=== PATIENT | female | born 1935 | race Caucasian/White ===

== ENCOUNTER 2018-11-07 11:23 | Inpatient (IN) | payer MEDICARE, BC ==
[2018-11-07 12:23] LABS: ABS Basophils 0.1 10^3/ul (0-0.2); ABS Eosinophils 0 10^3/ul (0-0.6); ABS Lymphocytes 0.2 10^3/ul (1.0-4.8); ABS Monocytes 0.3 10^3/ul (0-0.8); ABS Neutrophils 7.7 10^3/ul (1.5-7.7); ABS Nucleated RBC 0 10^3/ul; Eosinophil % 0.1 %; Hematocrit 40 % (33-41); Hemoglobin 13.3 g/dL (12.0-16.0); Lymphocyte % 2.7 %; Mean Corpuscular HGB Conc 34 g/dL (31-36); Mean Corpuscular Hemoglobin 31 pg (27-31); Mean Corpuscular Volume 91 fL (80-97); Mean Platelet Volume 8.2 fL (7.4-10.4); Nucleated Red Blood Cells % 0; Platelet Count 147 10^3/uL (150-450); Red Blood Count 4.35 10^6 /uL (3.70-4.87); Red Cell Distribution Width 15 % (10.5-15); White Blood Count 8.3 10^3/uL (3.5-10.8)
[2018-11-07 12:40] LABS: Albumin 4.5 g/dL (3.2-5.2); BUN/Creatinine Ratio 35.1 (8-20); C Reactive Protein 23.06 mg/L (<8.01); Calcium 9.7 mg/dL (8.6-10.3); EGFR African American 87.1 (>60); EGFR Non-African American 71.9 (>60); Globulin 2.3 g/dL (2-4); Potassium 3.8 mmol/L (3.5-5.0); Total Bilirubin 0.6 mg/dL (0.2-1.0); Total Protein 6.8 g/dL (6.4-8.9)
--- NOTE | 2018-11-07 12:48 | ED ---
Abdominal Pain/Female - HPI Summary HPI Summary: This patient is an 82 year old F presenting to [facility] with a chief complaint of intermittent right sided abdominal pain since last night. The patient rates the pain 4/10 in severity. Patient reports vomiting, diarrhea, SOB, and bloody stool. Patient denies CP. She doesnt usually eat dairy products. The vomiting began at 02:00 this morning. The patient says she usually has difficulty breathing due to her COPD. NKDA. PMHX pancreatic problems, gallbladder removal, hysterectomy, COPD, cardiac stent, Hemorrhoids. No PMHx appendectomy. No SHx tobacco use, EtOH use, recreational drugs. Vitals in the room: HR 88 bpm, BP 129 /63. - History of Current Complaint Chief Complaint: EDNauseaVomitDiarrh Stated Complaint: VOMITING AND DIARRHEA PER PT Time Seen by Provider: 11/07/18 12:35 Hx Obtained From: Patient Onset/Duration: Sudden Onset Timing: Constant Severity Currently: Mild Pain Intensity: 4 Pain Scale Used: 0-10 Numeric Location: Diffuse Associated Signs and Symptoms: Positive: Blood in Stool, Vomiting, Diarrhea Allergies/Adverse Reactions: Allergies Allergy/AdvReac Type Severity Reaction Status Date / Time No Known Allergies Allergy Verified 11/07/18 13:34 Home Medications: Home Medications Albuterol/Ipratropium NEB.TRACEY* [Duoneb (Albuterol 2.5 MG/Ipratropium 0.5 MG)] 1 neb INH Q4H PRN 11/07/18 [History Confirmed 11/07/18] Aspirin [Aspirin EC] 81 mg PO DAILY 11/07/18 [History Confirmed 11/07/18] Cholecalciferol (Vitamin D3) [Vitamin D3] 2,000 unit PO DAILY 11/07/18 [History Confirmed 11/07/18] Diclofenac Sodium 1 applic TOPICAL TID 11/07/18 [History Confirmed 11/07/18] Docusate Sodium [Colace] 100 mg PO BID PRN 11/07/18 [History Confirmed 11/07/18] Fluticasone NASAL SPRAY 50MCG* 1 spray BOTH NARES DAILY 11/07/18 [History Confirmed 11/07/18] Gabapentin 800 mg PO BID 11/07/18 [History Confirmed 11/07/18] Isosorbide Mononitrate ER TAB* [Imdur ER TAB*] 30 mg PO DAILY 11/07/18 [History Confirmed 11/07/18] Metoprolol Tartrate 100 mg PO DAILY 11/07/18 [History Confirmed 11/07/18] Multivitamin [One Daily] 1 tab PO DAILY 11/07/18 [History Confirmed 11/07/18] Nitroglycerin 0.4 mg SL Q5M 11/07/18 [History Confirmed 11/07/18] [place]-3 Fatty Acids (Nf) [Fish Oil (NF)] 2,000 mg PO DAILY 11/07/18 [History Confirmed 11/07/18] Oxycodone HCl 1 tab PO Q6H PRN 11/07/18 [History Confirmed 11/07/18] Oxycontin 40 mg 40 mg PO TID 11/07/18 [History Confirmed 11/07/18] Refresh Classic Eye Drops 1 drop BOTH EYES BID 11/07/18 [History Confirmed 11/07] Rosuvastatin Calcium 10 mg PO DAILY 11/07/18 [History Confirmed 11/07/18] Sertraline* [Zoloft*] 200 mg PO DAILY 11/07/18 [History Confirmed 11/07/18] Warfarin Sodium 7 mg PO DAILY 11/07/18 [History Confirmed 11/07/18] fentaNYL [Fentanyl] 1 patch TOPICAL Q3D 11/07/18 [History Confirmed 11/07/18] raNITIdine HCl [Ranitidine HCl] 300 mg PO DAILY 11/07/18 [History Confirmed ] PMH/Surg Hx/FS Hx/Imm Hx Respiratory History: Reports: Hx Chronic Obstructive Pulmonary Disease (COPD) GI History: Reports: Other GI Disorders - hemmorhoids Infectious Disease History: No Infectious Disease History: Denies: Traveled Outside the [place] in Last 30 Days - Family History Known Family History: Positive: Respiratory Disease - Social History Alcohol Use: None Substance Use Type: Reports: None Hx Tobacco Use: No Review of Systems Negative: Chest Pain Positive: Shortness Of Breath Positive: Abdominal Pain, Vomiting, Diarrhea, Other - bloody stool All Other Systems Reviewed And Are Negative: Yes Physical Exam - Summary Physical Exam Summary: GENERAL: Patient is a well-developed and nourished female who is lying uncomfortable in the stretcher. Patient is not in any acute respiratory distress. HEAD AND FACE: Normocephalic EYES: PERRLA, EOMI x 2. EARS: Hearing grossly intact. MOUTH: Oropharynx within normal limits. NECK: Supple, trachea is midline, no adenopathy, no JVD, no carotid bruit. CHEST: Symmetric, no tenderness at palpation LUNGS: Clear to auscultation bilaterally. No wheezing or crackles. CVS: Regular rate and rhythm, S1 and S2 present, no murmurs or gallops appreciated. ABDOMEN: Soft, diffuse TTP, worse on the right side. Bowel sounds are normal. No abdominal abnormal pulsations. EXTREMITIES: Full ROM in all major joints, no edema, no cyanosis or clubbing. NEURO: Alert and oriented x 3. No acute neurological deficits. Speech is normal and follows commands. SKIN: Dry and warm Triage Information Reviewed: Yes Vital Signs On Initial Exam: Initial Vitals Temp Pulse Resp BP Pulse Ox 98.1 F 89 18 151/85 97 11/07/18 11:24 11/07/18 11:24 11/07/18 11:24 11/07/18 11:24 11/07/18 11:24 Vital Signs Reviewed: Yes Diagnostics - Vital Signs Vital Signs Temp Pulse Resp BP Pulse Ox 11/07/18 11:24 98.1 F 89 18 151/85 97 - Laboratory Lab Results: Lab Results 11/07/18 11/07/18 11/07/18 Range/Units 12:12 12:12 12:12 WBC 8.3 (3.5-10.8) 10^3/uL RBC 4.35 (3.70-4.87) 10^6 /uL Hgb 13.3 (12.0-16.0) g/dL Hct 40 (33-41) % MCV 91 (80-97) fL MCH 31 (27-31) pg MCHC 34 (31-36) g/dL RDW 15 (10.5-15) % Plt Count 147 L (150-450) 10^3/uL MPV 8.2 (7.4-10.4) fL Neut % (Auto) 92.7 % Lymph % (Auto) 2.7 % [place] % (Auto) 3.9 % Eos % (Auto) 0.1 % Baso % (Auto) 0.6 % Absolute Neuts (auto) 7.7 (1.5-7.7) 10^3/ul Absolute Lymphs (auto) 0.2 L (1.0-4.8) 10^3/ul Absolute Monos (auto) 0.3 (0-0.8) 10^3/ul Absolute Eos (auto) 0 (0-0.6) 10^3/ul Absolute Basos (auto) 0.1 (0-0.2) 10^3/ul Absolute Nucleated RBC 0 10^3/ul Nucleated RBC % 0 Sodium 139 (135-145) mmol/L Potassium 3.8 (3.5-5.0) mmol/L Chloride 103 (101-111) mmol/L Carbon Dioxide 29 (22-32) mmol/L Anion Gap 7 (2-11) mmol/L BUN 27 H (6-24) mg/dL Creatinine 0.77 (0.51-0.95) mg/dL Est GFR ( Amer) 87.1 (>60) Est GFR (Non-Af Amer) 71.9 (>60) BUN/Creatinine Ratio 35.1 H (8-20) Glucose 123 H (70-100) mg/dL Lactic Acid 1.2 (0.5-2.0) mmol/L Calcium 9.7 (8.6-10.3) mg/dL Total Bilirubin 0.60 (0.2-1.0) mg/dL AST 20 (13-39) U/L ALT 15 (7-52) U/L Alkaline Phosphatase 60 (34-104) U/L C-Reactive Protein 23.06 H (<8.01) mg/L Total Protein 6.8 (6.4-8.9) g/dL Albumin 4.5 (3.2-5.2) g/dL Globulin 2.3 (2-4) g/dL Albumin/Globulin Ratio 2.0 (1-3) Lipase 10 L (11.0-82.0) U/L Result Diagrams: 11/07/18 12:12 11/07/18 12:12 Lab Statement: Any lab studies that have been ordered have been reviewed, and results considered in the medical decision making process. - CT A/P CT Interpretation Completed By: Radiologist Summary of CT Findings: 1. MILD FLUID-FILLED DISTENDED MID AND DISTAL SMALL BOWEL SUGGESTIVE OF A PARTIAL. OBSTRUCTION LESS LIKELY AN ILEUS. 2. STATUS POST CHOLECYSTECTOMY. THERE IS BOTH INTRA AND EXTRA HEPATIC DUCTAL DISTENTION. WHICH MAY REPRESENT POSTCHOLECYSTECTOMY CHANGES ALTHOUGH APPEARS MORE PROMINENT THAN. TYPICAL. 3. MILD SPLENOMEGALY WITH MULTIPLE SMALL LESIONS. RECOMMEND CLINICAL CORRELATION AND. FOLLOW-UP TO DEMONSTRATE STABILITY. ED physician has reviewed this report Abdominal Pain Fem Course/Dx - Course Course Of Treatment: This patient is an 82 year old F presenting to [facility] with a chief complaint of intermittent right sided abdominal pain since last night. The patient rates the pain 4/10 in severity. Patient reports vomiting, diarrhea , SOB, and bloody stool. Patient denies CP. CT A/P reveals, per radiologist, 1. MILD FLUID-FILLED DISTENDED MID AND DISTAL SMALL BOWEL SUGGESTIVE OF A PARTIAL. OBSTRUCTION LESS LIKELY AN ILEUS. 2. STATUS POST CHOLECYSTECTOMY. THERE IS BOTH INTRA AND EXTRA HEPATIC DUCTAL DISTENTION. WHICH MAY REPRESENT POSTCHOLECYSTECTOMY CHANGES ALTHOUGH APPEARS MORE PROMINENT THAN TYPICAL. 3. MILD SPLENOMEGALY WITH MULTIPLE SMALL LESIONS. RECOMMEND CLINICAL CORRELATION AND FOLLOW-UP TO DEMONSTRATE STABILITY. ED physician has reviewed this radiology report. Bloodwork/UA obtained. In the ED course the patient was given Ondansetron, Iohexol, IV fluids, and Morphine. We discussed patient care with Dr. Rachel and Dr. Vail, hospitalist, and they recommended admission. - Diagnoses Provider Diagnoses: SBO (small bowel obstruction) - Provider Notifications Discussed Care Of Patient With: Rickie Rachel Time Discussed With Above Provider: 15:08 Instructed by Provider To: Admit As Inpatient Discharge - Sign-Out/Discharge Documenting (check all that apply): Patient Departure - admission Patient Received Moderate/Deep Sedation with Procedure: No - Discharge Plan Condition: Fair Disposition: ADMITTED TO [facility] Referrals: Brenda Adler MD [Primary Care Provider] - - Billing Disposition and Condition Condition: FAIR Disposition: Admitted to [facility] - Attestation Statements Document Initiated by Scribe: Yes Documenting Scribe: Hosea Henning Provider For Whom Scribe is Documenting (Include Credential): Norris Flannery MD Scribe Attestation: Hosea Ibarra, liliaed for Norris Flannery MD on 11/07/18 at 1553. Scribe Documentation Reviewed: Yes Provider Attestation: The documentation as recorded by the harleenibHosea wilde accurately reflects the service I personally performed and the decisions made by me, Norris Flannery MD Status of Scribe Document: Viewed Consult Consult: I spoke with Dr. Vail, hospitalist, at 15:13 and he recommended admission.
[2018-11-07] MEDS ORDERED: NS 0.9% 1000 ML** 1,000 ML IV ONE ×2 (12:49)
[2018-11-07] MEDS ORDERED: Morphine 4 MG/ML VIAL (1 ml) 4 MG/ML VIAL IV ONE (12:49)
[2018-11-07] MEDS ORDERED: Ondansetron INJ* 2 MG/ML VIAL IV ONE (12:49)
[2018-11-07 13:07] LABS: Urine Appearance Cloudy; Urine Bacteria Absent (Absent); Urine Bilirubin Negative (Negative); Urine Blood 3+ (Negative); Urine Color Yellow; Urine Glucose Negative (Negative); Urine Ketones Negative (Negative); Urine Nitrite Negative (Negative); Urine Protein Negative (Negative); Urine Red Blood Cell 3+(>10/hpf) (Absent); Urine Specific Gravity 1.024 (1.010-1.030); Urine Squamous Epithelial Cell Present (Absent); Urine Urobilinogen Negative (Negative); Urine White Blood Cell Trace(0-5/hpf) (Absent)
[2018-11-07] MEDS ORDERED: Iohexol 300* (CONTRAST) 10 ML SDV IV ONE (13:30)
[2018-11-07 15:06] LABS: Activated Partial Thrombo Time 45.6 seconds (26.0-36.3); INR 3.15 (0.77-1.02)
[2018-11-07] MEDS ORDERED: Albuterol/Ipratropium NEB.SOL* Albuterol 2.5 MG/Ipratropium 0.5 MG 3 ML INH PRN (16:24)
[2018-11-07] MEDS ORDERED: HYDROmorphone INJ* 0.5 MG/0.5 ML SYRINGE IV SLOW PU PRN (16:38)
[2018-11-07] MEDS ORDERED: Lactated Ringers 1000 ML Bag* 1,000 ML IV SCH (17:00)
--- NOTE | 2018-11-07 19:16 | HP ---
ADMITTING HISTORY AND PHYSICAL: DATE OF ADMISSION: 11/07/18 CHIEF COMPLAINT: Right-sided abdominal pain. HISTORY OF PRESENT ILLNESS: The patient is an 82-year-old lady with history of COPD, previous history of cholecystectomy and hysterectomy, who mentioned that for the past "couple of months," she has been having intermittent right-sided abdominal pain; however, this abdominal pain seemed to have stayed far longer and much more severe since last night. She mentions that since at around 8:30 p.m. last night, she has been having diarrhea of large volume, mostly brown in color with bright red bloody streak. She mentioned that she had at least 10 large volume diarrhea since 8:30 p.m. At around 2 a.m. prior to admission, she started vomiting again. She mentioned that she has vomited a lot that she has lost count. Persistence of her signs and symptoms led to her presentation in the ED for further evaluation, at which point, she was sent for a CT of her abdomen and pelvis, which suggested partial small bowel obstruction with mild splenomegaly with multiple small lesions. In the ED, she was given 4 mg IV of morphine, 2 L normal saline bolus, and ondansetron. PAST MEDICAL AND SURGICAL HISTORY: 1. Hemorrhoids. 2. COPD. 3. Status post cholecystectomy. 4. DVT x1. 5. PE x2. 6. Status post hysterectomy. 7. CAD, status post stent placement. 8. Right hip repair back in 2018 in [facility]. 9. Left total knee repair, status post right ankle screw and pin on right foot. REVIEW OF SYSTEMS: Right-sided abdominal pain as discussed above. Nausea and vomiting as discussed above as well as diarrhea. Denies any headaches, dizziness, fevers, chills, constipation, myalgias, arthralgias, throat pain, or new skin lesions. Rest of the 14-point review of systems other than what was described is otherwise unremarkable. SOCIAL HISTORY: She mentions that she lives with her daughter, son, and as well as grandchildren and great grandchildren. She denies any previous history of alcohol abuse, IV drug use. She did use to smoke; however, but quit 20 years ago. She mentions that she only smokes 2 cigarettes per day, but has substantial secondhand smoke history. FAMILY HISTORY: Blood clots on her mother's side including her maternal grandmother and maternal aunt. Breast cancer, her daughter. Her first cousins , myriad of cancer. Rheumatoid arthritis, her father. PHYSICAL EXAMINATION GENERAL APPEARANCE: The patient is awake, alert, and oriented x3, not in acute distress. VITAL SIGNS: The most recent vital signs of records with blood pressure of 135/ 56, 70 beats per minute heart rate, 95% saturation on room air. HEENT: Normocephalic, atraumatic. PERRLA. Extraocular muscles intact. Negative for icterus. Moist oral mucosa. Negative throat erythema. NECK: Soft, supple with no cervical lymphadenopathy. No JVD. CHEST: Clear to auscultation bilaterally. Good air entry. No wheezes, rales, or rhonchi. HEART: S1, S2 within normal limits. Regular rate and rhythm. No murmurs, rubs , or gallops. ABDOMEN: Soft, nondistended, but tender on the right side, both upper and lower quadrants, but no rebound tenderness. No signs of peritonitis or acute abdomen. EXTREMITIES: No cyanosis, clubbing, or edema. PSYCHIATRIC: No active psychosis, depression, suicidal or homicidal ideations. SKIN: Warm to touch. LABORATORY DATA: Most recent and pertinent laboratories drawn showed CBC with a WBC of 8.3, H and H were found to be normal, platelet count of 147. INR of 3.15. PTT of 45.6. Sodium and potassium were found to be normal. BUN of 27, creatinine is normal. LFTs were found to be normal with CRP mildly elevated at 23.06. Lipase of 10. Urinalysis showed specific gravity of 1.024, leukocyte esterase 1+, squamous epithelial cells were present, bacteria were absent. ASSESSMENT AND PLAN: The patient is an 82-year-old lady with history of chronic obstructive pulmonary disease, previous history of deep venous thrombosis, pulmonary embolism, who has been admitted for right-sided abdominal pain, likely due to partial small bowel obstruction. 1. Partial small bowel obstruction. On review of CT scan as well as a clinical presentation of the patient where the patient does not seem to be overly distended abdominal coffey with air-fluid levels not being severe on the CAT scan, I will opt not to place an NG tube in her given she has reservation on having this done. At this time, I will control her pain and give her IV fluids and we will place her on lactated Ringer's. I will consult surgical service officially and we will continue to follow. We will recheck abdominal imaging in a.m. 2. Chronic obstructive pulmonary disease, not in acute exacerbation. Continue albuterol nebulization. 3. Gastroesophageal reflux disease. We will place the patient on pantoprazole IV. 4. Depression, stable. Continue sertraline. 5. Pulmonary embolism/deep venous thrombosis. We will continue warfarin, but at the lower dose given mildly supratherapeutic INR in a.m. and for the fact that she mentions that she has clotted before while on Coumadin; however, she was unsure if she was therapeutic or not in those times. 6. DVT prophylaxis. Please see above discussion. 7. Disposition. As above. We will await further input from surgical department. [id number]/[facility] #: [id number] SALUD
[2018-11-07] MEDS ORDERED: O ndansetron ODT 4MG 5TAB PRPK 4 MG PAK PO ONE (19:57)
[2018-11-07] MEDS ORDERED: Nitroglycerin TAB 0.4 MG* 0.4 MG TAB SL PRN (20:00)
[2018-11-07] MEDS: Gabapentin CAP(*) 300 MG PO SCH (21:19)
[2018-11-07] MEDS ORDERED: Ondansetron INJ* 2 MG/ML VIAL IV PRN (21:20)
[2018-11-07] MEDS: Artificial Tears* 15 ML BTL BOTH EYES SCH (21:20)
[2018-11-08] MEDS: HYDROmorphone INJ1* 1 MG/ML SYRINGE IV SLOW PU PRN ×2 (02:42→16:12)
[2018-11-08] MEDS: Nitroglycerin TAB 0.4 MG* 0.4 MG TAB SL SCH (06:52)
[2018-11-08 07:37] LABS: Hematocrit 32 % (33-41); Hemoglobin 10.7 g/dL (12.0-16.0); Mean Corpuscular HGB Conc 34 g/dL (31-36); Mean Corpuscular Hemoglobin 31 pg (27-31); Mean Corpuscular Volume 92 fL (80-97); Red Blood Count 3.48 10^6 /uL (3.70-4.87); Red Cell Distribution Width 15 % (10.5-15); White Blood Count 2.6 10^3/uL (3.5-10.8)
[2018-11-08 07:38] LABS: ABS Basophils 0 10^3/ul (0-0.2); ABS Eosinophils 0 10^3/ul (0-0.6); ABS Lymphocytes 0.5 10^3/ul (1.0-4.8); ABS Monocytes 0.3 10^3/ul (0-0.8); ABS Neutrophils 1.7 10^3/ul (1.5-7.7); ABS Nucleated RBC 0 10^3/ul; Eosinophil % 0.5 %; Lymphocyte % 21.1 %; Nucleated Red Blood Cells % 0.1
[2018-11-08 07:48] LABS: Albumin 3.4 g/dL (3.2-5.2); Albumin/Globulin Ratio 1.8 (1-3); BUN/Creatinine Ratio 23.6 (8-20); Calcium 8.8 mg/dL (8.6-10.3); EGFR African American 94.1 (>60); EGFR Non-African American 77.7 (>60); Globulin 1.9 g/dL (2-4); Magnesium 1.6 mg/dL (1.9-2.7); Phosphorus 2.6 mg/dL (2.5-5.0); Potassium 3.4 mmol/L (3.5-5.0); Total Bilirubin 0.5 mg/dL (0.2-1.0); Total Protein 5.3 g/dL (6.4-8.9)
[2018-11-08 08:31] LABS: Platelet Count 97 10^3/uL (150-450)
[2018-11-08] MEDS: Gabapentin CAP(*) 300 MG PO SCH ×3 (09:41→22:12)
[2018-11-08] MEDS: Pantoprazole IV* 40 MG IV SCH (09:41)
[2018-11-08] MEDS: Metoprolol Tartrate TAB* 100 MG TAB PO SCH (09:41)
[2018-11-08] MEDS: Sertraline* 100 MG TAB PO SCH (09:41)
[2018-11-08] MEDS: Aspirin EC TAB* 81 MG TAB.EC PO SCH (09:41)
[2018-11-08] MEDS: Isosorbide Mononitrate ER TAB* 30 MG PO SCH (09:41)
[2018-11-08] MEDS: Artificial Tears* 15 ML BTL BOTH EYES SCH ×2 (09:42→22:13)
[2018-11-08] MEDS: Fluticasone NASAL SPRAY 50MCG* 16 gm SPRAY BTL BOTH NARES SCH (09:42)
[2018-11-08] MEDS ORDERED: Magnesium Sulf 4 GM/100 ML IV* 4,000 MG/100 ML BAG IVPB ONE ×2 (10:23→10:33)
[2018-11-08] MEDS ORDERED: Potassium Chlor TAB* 20 MEQ TAB.ER PO STA ×2 (10:23→10:34)
[2018-11-08] MEDS ORDERED: KCL 20 MEQ/100 ML IVPREMIX* 20 MEQ/100 ML BAG IV ONE (10:42)
[2018-11-08 11:29] LABS: INR 2.68 (0.77-1.02)
--- NOTE | 2018-11-08 16:50 | PN ---
Subjective Date of Service: 11/08/18 Interval History: Pt seen and examined. Meds and labs reviewed. CC: Pt feels better despite no change in abd imaging ROS: Denied SHARP/dizziness, F/C, N/V, CP, SOB, increased cough, sputum production , abd pain, diarrhea, constipation, dysuria, myalgias, arthralgias, throat pain , and new skin lesions. The rest of the 14 point ROS are unremarkable. PHYSICAL EXAM: GEN APPEARANCE: Awake, not in acute distress HEENT: NC/AT, PERRLA, moist oral mucosa, (-) throat erythema NECK: Soft, supple, (-) cervical LAD, (-)JVD HEART: S1S2 WNL, RRR, No MRG CHEST: CTA, BL, GAE, No W/R/R ABD: Soft, ND/NT, NABS 4x Q EXT: No C/C/E SKIN: Warm to touch PSYCH: No active psychosis, hallucinations, depression, SI/HI Objective Active Medications: Albuterol/Ipratropium (Duoneb (Albuterol 2.5 Mg/Ipratropium 0.5 Mg)) 1 neb INH Q4H PRN PRN Reason: SOB/WHEEZING Aspirin (Aspirin Ec Tab*) 81 mg PO DAILY [facility] Last Admin: 11/08/18 09:41 Dose: 81 mg Fluticasone Propionate (Flonase Nasal [place] 50mcg*) 1 spray BOTH NARES DAILY [facility] Last Admin: 11/08/18 09:42 Dose: 1 spray Gabapentin (Neurontin Cap(*)) 300 mg PO TID [facility] Last Admin: 11/08/18 13:40 Dose: 300 mg Hydromorphone HCl (Dilaudid Inj1s*) 0.5 mg IV SLOW PU Q6H PRN PRN Reason: PAIN Last Admin: 11/08/18 16:12 Dose: 0.5 mg Lactated Ringer's (Lactated Ringers 1000 Ml Bag*) 1,000 mls @ 75 mls/hr IV PER RATE [facility] Stop: 11/11/18 06:19 Last Admin: 11/07/18 21:06 Dose: 75 mls/hr Lactated Ringer's (Lactated Ringers 1000 Ml Bag*) 1,000 mls @ 75 mls/hr IV PER RATE [facility] Stop: 11/10/18 06:19 Isosorbide Mononitrate (Imdur Er Tab*) 30 mg PO DAILY [facility] Last Admin: 11/08/18 09:41 Dose: 30 mg Metoprolol Tartrate (Lopressor Tab*) 100 mg PO DAILY [facility] Last Admin: 11/08/18 09:41 Dose: 100 mg Nitroglycerin (Nitroglycerin Tab 0.4 Mg*) 0.4 mg SL Q5M PRN PRN Reason: CHEST PAIN Ondansetron HCl (Zofran Inj*) 4 mg IV Q6H PRN PRN Reason: NAUSEA Pantoprazole Sodium (Protonix Iv*) 40 mg IV DAILY [facility] Last Admin: 11/08/18 09:41 Dose: 40 mg Polyvinyl Alcohol (Polyvinyl Alcohol 1.4% Opth*) 1 drop BOTH EYES BID [facility] Last Admin: 11/08/18 09:42 Dose: 1 drop Sertraline HCl (Zoloft*) 200 mg PO DAILY [facility] Last Admin: 11/08/18 09:41 Dose: 200 mg Warfarin Sodium (Coumadin Tab(*)) 6 mg PO 1700 [facility]; Protocol Last Admin: 11/08/18 16:12 Dose: 6 mg Vital Signs - 8 hr 11/08/18 11/08/18 11/08/18 08:53 09:41 11:13 Temperature 97.0 F 97.9 F Pulse Rate 64 59 Respiratory 18 18 18 Rate Blood Pressure 128/49 114/55 (mmHg) O2 Sat by Pulse 100 94 Oximetry 11/08/18 11/08/18 11/08/18 11:50 13:40 14:37 Temperature Pulse Rate Respiratory 18 18 18 Rate Blood Pressure (mmHg) O2 Sat by Pulse Oximetry 11/08/18 11/08/18 11/08/18 15:16 16:12 16:23 Temperature 97.0 F Pulse Rate 58 Respiratory 16 18 18 Rate Blood Pressure 122/52 (mmHg) O2 Sat by Pulse 97 Oximetry Oxygen Devices in Use Now: None Result Diagrams: 11/08/18 07:08 11/08/18 07:08 Additional Lab and Data: Lab Results 11/07/18 11/07/18 11/07/18 Range/Units 12:12 12:12 12:12 WBC 8.3 (3.5-10.8) 10^3/uL RBC 4.35 (3.70-4.87) 10^6 /uL Hgb 13.3 (12.0-16.0) g/dL Hct 40 (33-41) % MCV 91 (80-97) fL MCH 31 (27-31) pg MCHC 34 (31-36) g/dL RDW 15 (10.5-15) % Plt Count 147 L (150-450) 10^3/uL MPV 8.2 (7.4-10.4) fL Neut % (Auto) 92.7 % Lymph % (Auto) 2.7 % [place] % (Auto) 3.9 % Eos % (Auto) 0.1 % Baso % (Auto) 0.6 % Absolute Neuts (auto) 7.7 (1.5-7.7) 10^3/ul Absolute Lymphs (auto) 0.2 L (1.0-4.8) 10^3/ul Absolute Monos (auto) 0.3 (0-0.8) 10^3/ul Absolute Eos (auto) 0 (0-0.6) 10^3/ul Absolute Basos (auto) 0.1 (0-0.2) 10^3/ul Absolute Nucleated RBC 0 10^3/ul Nucleated RBC % 0 Sodium 139 (135-145) mmol/L Potassium 3.8 (3.5-5.0) mmol/L Chloride 103 (101-111) mmol/L Carbon Dioxide 29 (22-32) mmol/L Anion Gap 7 (2-11) mmol/L BUN 27 H (6-24) mg/dL Creatinine 0.77 (0.51-0.95) mg/dL Est GFR ( Amer) 87.1 (>60) Est GFR (Non-Af Amer) 71.9 (>60) BUN/Creatinine Ratio 35.1 H (8-20) Glucose 123 H (70-100) mg/dL Lactic Acid 1.2 (0.5-2.0) mmol/L Calcium 9.7 (8.6-10.3) mg/dL Total Bilirubin 0.60 (0.2-1.0) mg/dL AST 20 (13-39) U/L ALT 15 (7-52) U/L Alkaline Phosphatase 60 (34-104) U/L C-Reactive Protein 23.06 H (<8.01) mg/L Total Protein 6.8 (6.4-8.9) g/dL Albumin 4.5 (3.2-5.2) g/dL Globulin 2.3 (2-4) g/dL Albumin/Globulin Ratio 2.0 (1-3) Lipase 10 L (11.0-82.0) U/L Microbiology and Other Data: Microbiology 11/07/18 12:48 Urine Culture - Final Urine No Growth (<1,000 CFU/mL) Assess/Plan/Problems-Billing Assessment: - Patient Problems (1) SBO (small bowel obstruction) Current Visit: Yes Status: Acute Code(s): K56.609 - UNSP INTESTNL OBST, UNSP TO PARTIAL VERSUS COMPLETE OBST SNOMED Code(s): 266905138 Comment: #pSBO: -AXR shows no significant change and likely mild SB ileus vs/ pSBO given previous hx of cholecystectomy and hysterectopy -Given pt feels better despite having no radiological improvement, will continue IVF but will change to LR -Repeat AXR in AM -Consider Sx consult in AM if no change or worse (2) COPD (chronic obstructive pulmonary disease) Current Visit: Yes Status: Acute Code(s): J44.9 - CHRONIC OBSTRUCTIVE PULMONARY DISEASE, UNSPECIFIED SNOMED Code(s): 79870409 Comment: -Not in exacerbation -Continue current regimen w/nebs (3) GERD (gastroesophageal reflux disease) Current Visit: Yes Status: Acute Code(s): K21.9 - GASTRO-ESOPHAGEAL REFLUX DISEASE WITHOUT ESOPHAGITIS SNOMED Code(s): 446438348 Comment: -Continue Pantoprazole (4) Depression Current Visit: Yes Status: Acute Code(s): F32.9 - MAJOR DEPRESSIVE DISORDER , SINGLE EPISODE, UNSPECIFIED SNOMED Code(s): 08479869 Comment: -Continue Sertraline (5) DVT prophylaxis Current Visit: Yes Status: Acute Code(s): ZVK6212 - SNOMED Code(s): 195562852 Comment: -Continue Coumadin -INR =2.68 Status and Disposition: -As above
[2018-11-08] MEDS ORDERED: Warfarin TAB(*) 6 MG PO SCH (17:00)
[2018-11-08] MEDS ORDERED: fentaNYL PATCH 37.5 MCG/HR(NF) PATCH.TD72 TRANSDERM SCH (19:00)
[2018-11-08] MEDS ORDERED: fentaNYL PATCH 25 MCG/HR TRANSDERM SCH (19:00)
[2018-11-08] MEDS ORDERED: fentaNYL PATCH 12 MCG/HR TRANSDERM SCH (19:00)
[2018-11-08] MEDS: fentaNYL Patch Check Q Shift 1 NOTE FOLLOW UP SCH (22:05)
[2018-11-08] MEDS: Lactated Ringers 1000 ML Bag* 1,000 ML IV SCH (23:49)
[2018-11-09 06:04] LABS: Hematocrit 30 % (33-41); Hemoglobin 10.1 g/dL (12.0-16.0); Mean Corpuscular HGB Conc 34 g/dL (31-36); Mean Corpuscular Hemoglobin 31 pg (27-31); Mean Corpuscular Volume 91 fL (80-97); Mean Platelet Volume 8.1 fL (7.4-10.4); Platelet Count 94 10^3/uL (150-450); Red Blood Count 3.31 10^6 /uL (3.70-4.87); Red Cell Distribution Width 15 % (10.5-15)
[2018-11-09 06:11] LABS: INR 3.22 (0.77-1.02)
[2018-11-09 06:25] LABS: Albumin 3.4 g/dL (3.2-5.2); Albumin/Globulin Ratio 1.9 (1-3); BUN/Creatinine Ratio 22.4 (8-20); Calcium 8.9 mg/dL (8.6-10.3); EGFR African American 102.2 (>60); EGFR Non-African American 84.5 (>60); Globulin 1.8 g/dL (2-4); Phosphorus 2.5 mg/dL (2.5-5.0); Potassium 3.8 mmol/L (3.5-5.0); Total Bilirubin 0.5 mg/dL (0.2-1.0); Total Protein 5.2 g/dL (6.4-8.9)
[2018-11-09] MEDS: fentaNYL Patch Check Q Shift 1 NOTE FOLLOW UP SCH ×2 (06:54→18:32)
[2018-11-09] MEDS: Artificial Tears* 15 ML BTL BOTH EYES SCH ×2 (10:42→21:27)
[2018-11-09] MEDS: Fluticasone NASAL SPRAY 50MCG* 16 gm SPRAY BTL BOTH NARES SCH (10:42)
[2018-11-09] MEDS: Metoprolol Tartrate TAB* 100 MG TAB PO SCH (10:43)
[2018-11-09] MEDS: Gabapentin CAP(*) 300 MG PO SCH ×3 (10:43→21:26)
[2018-11-09] MEDS: Sertraline* 100 MG TAB PO SCH (10:43)
[2018-11-09] MEDS: Pantoprazole IV* 40 MG IV SCH (10:43)
[2018-11-09] MEDS: Isosorbide Mononitrate ER TAB* 30 MG PO SCH (10:44)
[2018-11-09] MEDS: Aspirin EC TAB* 81 MG TAB.EC PO SCH (10:44)
[2018-11-09] MEDS: HYDROmorphone INJ1* 1 MG/ML SYRINGE IV SLOW PU PRN (10:49)
[2018-11-09] MEDS: Lactated Ringers 1000 ML Bag* 1,000 ML IV SCH (13:36)
[2018-11-09] MEDS: Nitroglycerin TAB 0.4 MG* 0.4 MG TAB SL SCH ×12 (15:50→18:19)
[2018-11-09] MEDS ORDERED: Warfarin TAB(*) 5 MG PO SCH (17:00)
--- NOTE | 2018-11-09 19:38 | PN ---
Subjective Date of Service: 11/09/18 Interval History: Pt seen and examined. Meds and labs reviewed. CC: N/A ROS: Denied SHARP/dizziness, F/C, N/V, CP, SOB, increased cough, sputum production , abd pain, diarrhea, constipation, dysuria, myalgias, arthralgias, throat pain , and new skin lesions. The rest of the 14 point ROS are unremarkable. PHYSICAL EXAM: GEN APPEARANCE: Awake, not in acute distress HEENT: NC/AT, PERRLA, moist oral mucosa, (-) throat erythema NECK: Soft, supple, (-) cervical LAD, (-)JVD HEART: S1S2 WNL, RRR, No MRG CHEST: CTA, BL, GAE, No W/R/R ABD: Soft, ND/NT, NABS 4x Q EXT: No C/C/E SKIN: Warm to touch PSYCH: No active psychosis, hallucinations, depression, SI/HI Objective Active Medications: Albuterol/Ipratropium (Duoneb (Albuterol 2.5 Mg/Ipratropium 0.5 Mg)) 1 neb INH Q4H PRN PRN Reason: SOB/WHEEZING Aspirin (Aspirin Ec Tab*) 81 mg PO DAILY [facility] Last Admin: 11/09/18 10:44 Dose: 81 mg Fentanyl (Duragesic Patch 12 Mcg/Hr *) 12 mcg TRANSDERM Q72H [facility] Last Admin: 11/08/18 22:02 Dose: 12 mcg Fentanyl (Duragesic Patch 25 Mcg/Hr*) 25 mcg TRANSDERM Q72H [facility] Last Admin: 11/08/18 22:04 Dose: 25 mcg Fluticasone Propionate (Flonase Nasal [place] 50mcg*) 1 spray BOTH NARES DAILY [facility] Last Admin: 11/09/18 10:42 Dose: 1 spray Gabapentin (Neurontin Cap(*)) 300 mg PO TID [facility] Last Admin: 11/09/18 13:39 Dose: 300 mg Hydromorphone HCl (Dilaudid Inj1s*) 0.5 mg IV SLOW PU Q6H PRN PRN Reason: PAIN Last Admin: 11/09/18 10:49 Dose: 0.5 mg Lactated Ringer's (Lactated Ringers 1000 Ml Bag*) 1,000 mls @ 75 mls/hr IV PER RATE [facility] Stop: 11/10/18 06:19 Last Admin: 11/09/18 13:36 Dose: 75 mls/hr Isosorbide Mononitrate (Imdur Er Tab*) 30 mg PO DAILY [facility] Last Admin: 11/09/18 10:44 Dose: 30 mg Metoprolol Tartrate (Lopressor Tab*) 100 mg PO DAILY [facility] Last Admin: 11/09/18 10:43 Dose: 100 mg Nitroglycerin (Nitroglycerin Tab 0.4 Mg*) 0.4 mg SL Q5M PRN PRN Reason: CHEST PAIN Ondansetron HCl (Zofran Inj*) 4 mg IV Q6H PRN PRN Reason: NAUSEA Pantoprazole Sodium (Protonix Iv*) 40 mg IV DAILY [facility] Last Admin: 11/09/18 10:43 Dose: 40 mg Pharmacy Profile Note (Fentanyl Patch Check Q Shift) 1 note FOLLOW UP 0700, 1900 [facility] Last Admin: 11/09/18 18:32 Dose: 1 note Polyvinyl Alcohol (Polyvinyl Alcohol 1.4% Opth*) 1 drop BOTH EYES BID [facility] Last Admin: 11/09/18 10:42 Dose: 1 drop Sertraline HCl (Zoloft*) 200 mg PO DAILY [facility] Last Admin: 11/09/18 10:43 Dose: 200 mg Warfarin Sodium (Coumadin Tab(*)) 5 mg PO 1700 [facility]; Protocol Last Admin: 11/09/18 17:42 Dose: 5 mg Vital Signs - 8 hr 11/09/18 11/09/18 11/09/18 11:49 12:15 13:39 Temperature Respiratory 17 16 18 Rate Blood Pressure (mmHg) 11/09/18 11/09/18 11/09/18 15:28 15:29 15:47 Temperature 98.3 F 98.3 F Respiratory 16 17 Rate Blood Pressure 150/59 (mmHg) Oxygen Devices in Use Now: None Result Diagrams: 11/09/18 05:27 11/09/18 05:27 Additional Lab and Data: Lab Results 11/07/18 11/07/18 11/07/18 Range/Units 12:12 12:12 12:12 WBC 8.3 (3.5-10.8) 10^3/uL RBC 4.35 (3.70-4.87) 10^6 /uL Hgb 13.3 (12.0-16.0) g/dL Hct 40 (33-41) % MCV 91 (80-97) fL MCH 31 (27-31) pg MCHC 34 (31-36) g/dL RDW 15 (10.5-15) % Plt Count 147 L (150-450) 10^3/uL MPV 8.2 (7.4-10.4) fL Neut % (Auto) 92.7 % Lymph % (Auto) 2.7 % [place] % (Auto) 3.9 % Eos % (Auto) 0.1 % Baso % (Auto) 0.6 % Absolute Neuts (auto) 7.7 (1.5-7.7) 10^3/ul Absolute Lymphs (auto) 0.2 L (1.0-4.8) 10^3/ul Absolute Monos (auto) 0.3 (0-0.8) 10^3/ul Absolute Eos (auto) 0 (0-0.6) 10^3/ul Absolute Basos (auto) 0.1 (0-0.2) 10^3/ul Absolute Nucleated RBC 0 10^3/ul Nucleated RBC % 0 Sodium 139 (135-145) mmol/L Potassium 3.8 (3.5-5.0) mmol/L Chloride 103 (101-111) mmol/L Carbon Dioxide 29 (22-32) mmol/L Anion Gap 7 (2-11) mmol/L BUN 27 H (6-24) mg/dL Creatinine 0.77 (0.51-0.95) mg/dL Est GFR ( Amer) 87.1 (>60) Est GFR (Non-Af Amer) 71.9 (>60) BUN/Creatinine Ratio 35.1 H (8-20) Glucose 123 H (70-100) mg/dL Lactic Acid 1.2 (0.5-2.0) mmol/L Calcium 9.7 (8.6-10.3) mg/dL Total Bilirubin 0.60 (0.2-1.0) mg/dL AST 20 (13-39) U/L ALT 15 (7-52) U/L Alkaline Phosphatase 60 (34-104) U/L C-Reactive Protein 23.06 H (<8.01) mg/L Total Protein 6.8 (6.4-8.9) g/dL Albumin 4.5 (3.2-5.2) g/dL Globulin 2.3 (2-4) g/dL Albumin/Globulin Ratio 2.0 (1-3) Lipase 10 L (11.0-82.0) U/L Microbiology and Other Data: Microbiology 11/07/18 12:48 Urine Culture - Final Urine No Growth (<1,000 CFU/mL) Assess/Plan/Problems-Billing Assessment: - Patient Problems (1) SBO (small bowel obstruction) Current Visit: Yes Status: Acute Code(s): K56.609 - UNSP INTESTNL OBST, UNSP TO PARTIAL VERSUS COMPLETE OBST SNOMED Code(s): 761871823 Comment: #pSBO: -AXR shows no significant change and likely mild SB ileus vs/ pSBO given previous hx of cholecystectomy and hysterectopy, but pt appears clinically stable and will defer decision for NGT w/Sx or eval -D/W Dr. Joyce and will await further input (2) COPD (chronic obstructive pulmonary disease) Current Visit: Yes Status: Acute Code(s): J44.9 - CHRONIC OBSTRUCTIVE PULMONARY DISEASE, UNSPECIFIED SNOMED Code(s): 43691358 Comment: -Not in exacerbation -Continue current regimen w/nebs (3) GERD (gastroesophageal reflux disease) Current Visit: Yes Status: Acute Code(s): K21.9 - GASTRO-ESOPHAGEAL REFLUX DISEASE WITHOUT ESOPHAGITIS SNOMED Code(s): 482731674 Comment: -Continue Pantoprazole (4) Depression Current Visit: Yes Status: Acute Code(s): F32.9 - MAJOR DEPRESSIVE DISORDER , SINGLE EPISODE, UNSPECIFIED SNOMED Code(s): 26161081 Comment: -Continue Sertraline (5) DVT prophylaxis Current Visit: Yes Status: Acute Code(s): QBS8629 - SNOMED Code(s): 007701546 Comment: -Continue Coumadin -INR = 3.22 (Coumadin due to previous DVT and PE hx); adjusted Coumadin to 5 mg Status and Disposition: -Will await input from Dr. Joyce/Surgical service
--- NOTE | 2018-11-09 20:23 | PN ---
Progress Note - Progress Note Date of Service: 11/09/18 Note: Surgery Progress Note Please see full dictated H&P by Alyssa Beard. But briefly, patient is an 82 yo F with a past surgical history of cholecystectomy and hysterectomy who presented to the ED on Thursday with complaints of diffuse watery green diarrhea, nausea and emesis and right lower abdominal pain. She said she has not had any recent travel, does not believe she ate anything particularly unusual and has had no sick contacts or recent antibiotics. She presented to the ED and CT abdomen showed some very mildly dilated loops of small bowel. Follow up AXR show a very nonspecific bowel pattern, some mildly dilated loops of bowel with air in the colon. Today patient feels well. She had a small bowel movement this afternoon. Has not had gas yet. Vitals, labs, imaging reviewed. C diff negative. Abdomen is soft, mildy distended, mildly tender in RLQ. I suspect she had some sort of infectious diarrhea that caused the profuse diarrhea, nausea and emesis and developed an ileus from which she is recovering. Her AXR shows gas in the colon and no significant dilated loops of bowel. Recommend not repeat imaging and follow patient clinically. We put patient on CLD in the afternoon and she is tolerating this.
--- NOTE | 2018-11-09 20:49 | CONS ---
CC: Dr. Nieves Joyce; Dr. Brenda Adler * SURGICAL CONSULTATION NOTE: DATE OF CONSULT: 11/09/18 LOCATION: Room 405. ATTENDING PHYSICIAN: Dr. Nieves Joyce. CHIEF COMPLAINT: Right-sided abdominal pain. HISTORY OF PRESENT ILLNESS: The patient is an 82-year-old female admitted by the hospitalist service on 11/07/18 with a history of intermittent right-sided abdominal pain for the past "couple of months." Her most recent episode of abdominal pain started on the evening of 11/06/18 associated with frequent diarrhea and vomiting. Persistence of her signs and symptoms led her to present in the emergency department for further evaluation, at which point she was sent for a CT of her abdomen and pelvis with IV contrast, which suggested partial small bowel obstruction with mild splenomegaly. She has been kept n.p.o. and serial abdominal films have been taken. Today's film showed improvement with air in the colon, no dilated loops of bowel and resolving small bowel obstruction. She is feeling much better. She has minimal abdominal pain and she is hungry; her stools are still loser than usual and today she said she passed corn with her stool and she wondered if that had been the source of obstruction. She has been afebrile for the past 48 hours and her vital signs have been stable. 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 MEDICATIONS: Reviewed and include: 1. OxyContin. 2. Metoprolol. 3. Gabapentin. 4. Aspirin. 5. Oxycodone. 6. Docusate. 7. Ranitidine. 8. Rosuvastatin. 9. Isosorbide. 10. Fluticasone nasal spray. 11. Fentanyl patch. 12. Warfarin. 13. Sertraline. 14. Albuterol ipratropium nebulizer. ALLERGIES: No known drug allergies. FAMILY HISTORY: Reviewed and are unchanged. SOCIAL HISTORY: Reviewed and are unchanged. REVIEW OF SYSTEMS: Right-sided abdominal pain as discussed above. Nausea, vomiting, and diarrhea as discussed above. Denies any fevers, chills, myalgias , and the rest of the 14-point review of systems is negative. PHYSICAL EXAM: Height 5 feet 1 inch, weight 171 pounds, body mass index 32.3. Blood pressure 130-150/60, heart rate in the 60s, respiratory rate 18, and she is afebrile. Physical exam is limited to abdominal assessment; active bowel sounds, obese, soft, nondistended, mild tenderness right mid abdomen with deep palpation. No guarding. No peritoneal signs. No obvious masses or organomegaly or evidence of ventral hernia. IMPRESSION: Resolving partial small bowel obstruction. PLAN: Start clear liquid diet and advance diet as tolerated. TIME SPENT: 60 minutes with greater than 50% in [id number] history taking, physical examination, and coordination of care. GEMA ALFARO NP [id number]/[facility] #: [id number] SALUD
[2018-11-10] MEDS: fentaNYL Patch Check Q Shift 1 NOTE FOLLOW UP SCH ×2 (06:56→19:19)
[2018-11-10 08:38] LABS: ABS Basophils 0 10^3/ul (0-0.2); ABS Eosinophils 0.1 10^3/ul (0-0.6); ABS Lymphocytes 0.8 10^3/ul (1.0-4.8); ABS Monocytes 0.5 10^3/ul (0-0.8); ABS Neutrophils 1.9 10^3/ul (1.5-7.7); ABS Nucleated RBC 0 10^3/ul; Eosinophil % 3.9 %; Hematocrit 32 % (33-41); Hemoglobin 10.9 g/dL (12.0-16.0); Lymphocyte % 23.8 %; Mean Corpuscular HGB Conc 35 g/dL (31-36); Mean Corpuscular Hemoglobin 31 pg (27-31); Mean Corpuscular Volume 91 fL (80-97); Mean Platelet Volume 8.2 fL (7.4-10.4); Nucleated Red Blood Cells % 0; Platelet Count 100 10^3/uL (150-450); Red Blood Count 3.49 10^6 /uL (3.70-4.87); Red Cell Distribution Width 15 % (10.5-15); White Blood Count 3.3 10^3/uL (3.5-10.8)
[2018-11-10 09:03] LABS: BUN/Creatinine Ratio 15.9 (8-20); EGFR African American 98.8 (>60); EGFR Non-African American 81.7 (>60); Magnesium 1.7 mg/dL (1.9-2.7)
[2018-11-10 09:21] LABS: INR 5.8 (0.77-1.02)
[2018-11-10] MEDS: Fluticasone NASAL SPRAY 50MCG* 16 gm SPRAY BTL BOTH NARES SCH (09:27)
[2018-11-10] MEDS: Artificial Tears* 15 ML BTL BOTH EYES SCH ×2 (09:27→21:53)
[2018-11-10] MEDS: Isosorbide Mononitrate ER TAB* 30 MG PO SCH (09:28)
[2018-11-10] MEDS: Metoprolol Tartrate TAB* 100 MG TAB PO SCH (09:28)
[2018-11-10] MEDS: Aspirin EC TAB* 81 MG TAB.EC PO SCH (09:28)
[2018-11-10] MEDS: Sertraline* 100 MG TAB PO SCH (09:28)
[2018-11-10] MEDS: Gabapentin CAP(*) 300 MG PO SCH ×3 (09:28→21:53)
[2018-11-10] MEDS: Pantoprazole IV* 40 MG IV SCH (09:29)
[2018-11-10] MEDS ORDERED: Magnesium Oxide TAB* 400 MG PO ONE (10:46)
--- NOTE | 2018-11-10 11:44 | PN ---
Progress Note - Progress Note Date of Service: 11/10/18 Note: Surgery Progress Note S: Patient feels very well this morning. Had flatus and BM again this morning that she described as small to medium. She does not have abdominal pain this morning. She has had no nausea or emesis. Tolerating a clear liquid diet. O: Vital Signs: Temp Pulse Resp BP Pulse Ox 98.2 F 65 16 125/51 96 11/10/18 11:01 11/10/18 11:01 11/10/18 11:01 11/10/18 11:01 11/10/18 11:01 Laboratory Last Values WBC 3.3 10^3/uL (3.5-10.8) L 11/10/18 08:02 RBC 3.49 10^6 /uL (3.70-4.87) L 11/10/18 08:02 Hgb 10.9 g/dL (12.0-16.0) L 11/10/18 08:02 Hct 32 % (33-41) L 11/10/18 08:02 MCV 91 fL (80-97) 11/10/18 08:02 MCH 31 pg (27-31) 11/10/18 08:02 MCHC 35 g/dL (31-36) 11/10/18 08:02 RDW 15 % (10.5-15) 11/10/18 08:02 Plt Count 100 10^3/uL (150-450) L 11/10/18 08:02 MPV 8.2 fL (7.4-10.4) 11/10/18 08:02 Neut % (Auto) 57.7 % 11/10/18 08:02 Lymph % (Auto) 23.8 % 11/10/18 08:02 [place] % (Auto) 14.3 % 11/10/18 08:02 Eos % (Auto) 3.9 % 11/10/18 08:02 Baso % (Auto) 0.3 % 11/10/18 08:02 Absolute Neuts (auto) 1.9 10^3/ul (1.5-7.7) 11/10/18 08:02 Absolute Lymphs (auto) 0.8 10^3/ul (1.0-4.8) L 11/10/18 08:02 Absolute Monos (auto) 0.5 10^3/ul (0-0.8) 11/10/18 08:02 Absolute Eos (auto) 0.1 10^3/ul (0-0.6) 11/10/18 08:02 Absolute Basos (auto) 0 10^3/ul (0-0.2) 11/10/18 08:02 Absolute Nucleated RBC 0 10^3/ul 11/10/18 08:02 Nucleated RBC % 0 11/10/18 08:02 Hem Pathologist Commnt 11/08/18 07:08 INR (Anticoag Therapy) 5.80 (0.77-1.02) H* 11/10/18 08:02 APTT 45.6 seconds (26.0-36.3) H 11/07/18 14:49 Sodium 141 mmol/L (135-145) 11/10/18 08:02 Potassium 4.0 mmol/L (3.5-5.0) 11/10/18 08:02 Chloride 107 mmol/L (101-111) 11/10/18 08:02 Carbon Dioxide 26 mmol/L (22-32) 11/10/18 08:02 Anion Gap 8 mmol/L (2-11) 11/10/18 08:02 BUN 11 mg/dL (6-24) 11/10/18 08:02 Creatinine 0.69 mg/dL (0.51-0.95) 11/10/18 08:02 Est GFR ( Amer) 98.8 (>60) 11/10/18 08:02 Est GFR (Non-Af Amer) 81.7 (>60) 11/10/18 08:02 BUN/Creatinine Ratio 15.9 (8-20) 11/10/18 08:02 Glucose 90 mg/dL (70-100) 11/10/18 08:02 Lactic Acid 0.8 mmol/L (0.5-2.0) 11/07/18 14:49 Calcium 9.0 mg/dL (8.6-10.3) 11/10/18 08:02 Phosphorus 3.0 mg/dL (2.5-5.0) 11/10/18 08:02 Magnesium 1.7 mg/dL (1.9-2.7) L 11/10/18 08:02 Total Bilirubin 0.50 mg/dL (0.2-1.0) 11/09/18 05:27 AST 26 U/L (13-39) 11/09/18 05:27 ALT 19 U/L (7-52) 11/09/18 05:27 Alkaline Phosphatase 44 U/L (34-104) 11/09/18 05:27 C-Reactive Protein 23.06 mg/L (<8.01) H 11/07/18 12:12 Total Protein 5.2 g/dL (6.4-8.9) L 11/09/18 05:27 Albumin 3.4 g/dL (3.2-5.2) 11/09/18 05:27 Globulin 1.8 g/dL (2-4) L 11/09/18 05:27 Albumin/Globulin Ratio 1.9 (1-3) 11/09/18 05:27 Lipase 10 U/L (11.0-82.0) L 11/07/18 12:12 Urine Color Yellow 11/07/18 12:48 Urine Appearance Cloudy 11/07/18 12:48 Urine pH 5.0 (5-9) 11/07/18 12:48 Ur Specific [place] 1.024 (1.010-1.030) 11/07/18 12:48 Urine Protein Negative (Negative) 11/07/18 12:48 Urine Ketones Negative (Negative) 11/07/18 12:48 Urine Blood 3+ (Negative) A 11/07/18 12:48 Urine Nitrate Negative (Negative) 11/07/18 12:48 Urine Bilirubin Negative (Negative) 11/07/18 12:48 Urine Urobilinogen Negative (Negative) 11/07/18 12:48 Ur Leukocyte Esterase 1+ (Negative) A 11/07/18 12:48 Urine WBC (Auto) Trace(0-5/hpf) (Absent) 11/07/18 12:48 Urine RBC (Auto) 3+(>10/hpf) (Absent) A 11/07/18 12:48 Ur Squamous Epith Cells Present (Absent) A 11/07/18 12:48 Urine Bacteria Absent (Absent) 11/07/18 12:48 Urine Glucose Negative (Negative) 11/07/18 12:48 Urine Ascorbic Acid * (Negative) A 11/07/18 12:48 Blood Type O Positive 11/07/18 14:49 Antibody Screen Negative 11/07/18 14:49 Intake & Output 11/09/18 11/10/18 11/10/18 22:59 06:59 14:59 Intake Total 1743 570 600 Balance 1743 570 600 Intake: IV Fluids 533 170 IVF & ivpb 533 170 Oral 1210 400 600 Other: Estimated Void Large Large # Bowel Movements 0 0 # Voids 1 1 Abd: soft, non tender, non distended A/P: 82 F who presented to ED with nausea, emesis and diarrhea, with imaging showing a partial SBO, no resolving. - Recommend advancing diet. Patient should be advised to continue slowly advancing diet as an outpatient when she is discharged. - Surgery will sign off. Please feel free to call back any time with further questions or if you would like us to see patient again. Discussed with Dr. Zhou
[2018-11-10] MEDS ORDERED: Loperamide CAP* 2 MG PO ONE (14:10)
--- NOTE | 2018-11-10 15:07 | PN ---
Subjective Date of Service: 11/10/18 Interval History: HOSPITALIST PROGRESS NOTE Patient seen and examined at bedside. Care reviewed and d/w Hansa Casanova RN. She was evaluated earlier today. Had had a BM, was tolerating clear liquids. Initial plan was to advance diet and d/c home if she was feeling well. Unfortunately, she developed copious diarrhea after diet advanced. Family History: Unchanged from Admission Social History: Unchanged from Admission Past Medical History: Unchanged from Admission Objective Active Medications: Albuterol/Ipratropium (Duoneb (Albuterol 2.5 Mg/Ipratropium 0.5 Mg)) 1 neb INH Q4H PRN PRN Reason: SOB/WHEEZING Aspirin (Aspirin Ec Tab*) 81 mg PO DAILY [facility] Last Admin: 11/10/18 09:28 Dose: 81 mg Fentanyl (Duragesic Patch 12 Mcg/Hr *) 12 mcg TRANSDERM Q72H [facility] Last Admin: 11/08/18 22:02 Dose: 12 mcg Fentanyl (Duragesic Patch 25 Mcg/Hr*) 25 mcg TRANSDERM Q72H [facility] [place] Last Admin: 11/08/18 22:04 Dose: 25 mcg Fluticasone Propionate (Flonase Nasal [place] 50mcg*) 1 spray BOTH NARES DAILY [facility] Last Admin: 11/10/18 09:27 Dose: 1 spray Gabapentin (Neurontin Cap(*)) 300 mg PO TID [facility] Last Admin: 11/10/18 13:41 Dose: 300 mg Hydromorphone HCl (Dilaudid Inj1s*) 0.5 mg IV SLOW PU Q6H PRN PRN Reason: PAIN Last Admin: 11/09/18 10:49 Dose: 0.5 mg Isosorbide Mononitrate (Imdur Er Tab*) 30 mg PO DAILY [facility] Last Admin: 11/10/18 09:28 Dose: 30 mg Metoprolol Tartrate (Lopressor Tab*) 100 mg PO DAILY [facility] Last Admin: 11/10/18 09:28 Dose: 100 mg Nitroglycerin (Nitroglycerin Tab 0.4 Mg*) 0.4 mg SL Q5M PRN PRN Reason: CHEST PAIN Ondansetron HCl (Zofran Inj*) 4 mg IV Q6H PRN PRN Reason: NAUSEA Pantoprazole Sodium (Protonix Iv*) 40 mg IV DAILY [facility] Last Admin: 11/10/18 09:29 Dose: 40 mg Pharmacy Profile Note (Fentanyl Patch Check Q Shift) 1 note FOLLOW UP 0700, 1900 [facility] Last Admin: 11/10/18 06:56 Dose: 1 note Pharmacy Profile Note (Coumadin Daily Reminder*) 1 note FOLLOW UP 1700 [facility] Polyvinyl Alcohol (Polyvinyl Alcohol 1.4% Opth*) 1 drop BOTH EYES BID [facility] Last Admin: 11/10/18 09:27 Dose: 1 drop Sertraline HCl (Zoloft*) 200 mg PO DAILY [facility] Last Admin: 11/10/18 09:28 Dose: 200 mg Vital Signs - 8 hr 11/10/18 11/10/18 11/10/18 07:57 08:00 08:36 Temperature 97.8 F 97.8 F Pulse Rate 60 60 Respiratory 16 18 16 Rate Blood Pressure 153/60 153/60 (mmHg) O2 Sat by Pulse 95 Oximetry 11/10/18 11/10/18 11/10/18 09:28 11:01 12:44 Temperature 98.2 F Pulse Rate 65 Respiratory 16 16 18 Rate Blood Pressure 125/51 (mmHg) O2 Sat by Pulse 96 Oximetry 11/10/18 11/10/18 13:41 15:03 Temperature Pulse Rate Respiratory 16 18 Rate Blood Pressure (mmHg) O2 Sat by Pulse Oximetry Oxygen Devices in Use Now: None Appearance: Pleasant elderly lady sitting up in bed in [facility]. Eyes: No Scleral Icterus Ears/Nose/Mouth/Throat: Mucous Membranes Moist Neck: Trachea Midline Respiratory: Symmetrical Chest Expansion and Respiratory Effort, Clear to Auscultation Cardiovascular: RRR - Normal S1 and S2 Abdominal: NL Sounds; No Tenderness; No Distention Neurological: Alert and Oriented x 3, NL Muscle Strength and Tone Result Diagrams: 11/10/18 08:02 11/10/18 08:02 Assess/Plan/Problems-Billing Assessment: Mrs Nayak is an 82yo F with PMH of COPD, DVT/PE, CAD, who presented to ED with c/ o abdominal pain, N/V/D, found to have possible SBO. - Patient Problems (1) SBO (small bowel obstruction) Comment: - Partial SBO vs ileus secondary to viral gastroenteritis. - Clinically improving, but developed more diarrhea after diet advanced. - Stool w/u negative so far, including negative for blood. - Suspect viral infection as she has leukopenia/lymphopenia/thrombocytopenia ( already recovering). - Surgery input appreciated. - Symptomatic treatment and monitor. (2) Supratherapeutic INR Comment: - INR up to 5.8 today in the setting of Warfarin therapy and NPO. - No signs of active bleeding. - Hold Warfarin and monitor INR. (3) COPD (chronic obstructive pulmonary disease) Comment: - Stable. - Continue bronchodilators. (4) Chronic pain Comment: - Continue Oxycontin / Oxycodone. (5) Depression Comment: - Continue Sertraline. (6) GERD (gastroesophageal reflux disease) Comment: - Continue Pantoprazole. (7) CAD (coronary artery disease) Comment: - Stable. - Continue Aspirin, Imdur, Metoprolol. (8) DVT prophylaxis Comment: - INR supratherapeutic. - Warfarin on hold for now. (9) Full code status Status and Disposition: Anticipate d/c in AM if tolerating diet and diarrhea improved.
[2018-11-10] MEDS ORDERED: Magnesium Sulfate 2 GM IV* 2 GM/50 ML BAG IVPB ONE (15:42)
[2018-11-11 06:33] LABS: ABS Basophils 0 10^3/ul (0-0.2); ABS Eosinophils 0.1 10^3/ul (0-0.6); ABS Lymphocytes 0.8 10^3/ul (1.0-4.8); ABS Monocytes 0.5 10^3/ul (0-0.8); ABS Neutrophils 2.4 10^3/ul (1.5-7.7); ABS Nucleated RBC 0 10^3/ul; Eosinophil % 3.4 %; Hematocrit 31 % (33-41); Hemoglobin 10.7 g/dL (12.0-16.0); Lymphocyte % 21.7 %; Mean Corpuscular HGB Conc 34 g/dL (31-36); Mean Corpuscular Hemoglobin 31 pg (27-31); Mean Corpuscular Volume 90 fL (80-97); Mean Platelet Volume 7.9 fL (7.4-10.4); Nucleated Red Blood Cells % 0.1; Platelet Count 103 10^3/uL (150-450); Red Blood Count 3.47 10^6 /uL (3.70-4.87); Red Cell Distribution Width 15 % (10.5-15); White Blood Count 3.9 10^3/uL (3.5-10.8)
[2018-11-11 06:41] LABS: INR 3.47 (0.77-1.02)
[2018-11-11 06:46] LABS: BUN/Creatinine Ratio 14.7 (8-20); Calcium 9.1 mg/dL (8.6-10.3); EGFR African American 100.5 (>60); Magnesium 1.9 mg/dL (1.9-2.7); Potassium 3.4 mmol/L (3.5-5.0)
[2018-11-11] MEDS: fentaNYL Patch Check Q Shift 1 NOTE FOLLOW UP SCH (07:06)
[2018-11-11] MEDS ORDERED: Potassium Chlor TAB* 20 MEQ TAB.ER PO ONE (07:32)
[2018-11-11] MEDS: Artificial Tears* 15 ML BTL BOTH EYES SCH (09:09)
[2018-11-11] MEDS: Fluticasone NASAL SPRAY 50MCG* 16 gm SPRAY BTL BOTH NARES SCH (09:09)
[2018-11-11] MEDS: Pantoprazole IV* 40 MG IV SCH (09:09)
[2018-11-11] MEDS: Gabapentin CAP(*) 300 MG PO SCH (09:10)
[2018-11-11] MEDS: Aspirin EC TAB* 81 MG TAB.EC PO SCH (09:10)
[2018-11-11] MEDS: Isosorbide Mononitrate ER TAB* 30 MG PO SCH (09:10)
[2018-11-11] MEDS: Metoprolol Tartrate TAB* 100 MG TAB PO SCH (09:10)
[2018-11-11] MEDS: Sertraline* 100 MG TAB PO SCH (09:10)
[2018-11-11 11:32] VITALS: BP 128/53
--- NOTE | 2018-11-11 22:07 | DS ---
CC: Dr. Brenda Adler, [facility] * DISCHARGE SUMMARY: DATE OF ADMISSION: 11/07/18 DATE OF DISCHARGE: 11/11/18 PRIMARY CARE PROVIDER: Dr. Brenda Adler at [facility]. DISCHARGE DIAGNOSES: 1. Partial small bowel obstruction versus ileus secondary to viral gastroenteritis. 2. Supratherapeutic INR. SECONDARY DIAGNOSES: 1. Chronic obstructive pulmonary disease/history of deep vein thrombosis and pulmonary embolism. 2. Coronary artery disease, status post stent. 3. Hemorrhoids. 4. Status post cholecystectomy. 5. Status post hysterectomy. 6. Chronic back pain. 7. History of deep vein thrombosis and pulmonary embolism, status post inferior vena cava filter placement. MEDICATION LIST: 1. Albuterol/ipratropium nebulized q.4 hours p.r.n. shortness of breath and wheezing. 2. Aspirin 81 mg p.o. daily. 3. Cholecalciferol 2000 units p.o. daily. 4. Diclofenac gel topical to knee, back, and hips t.i.d. as needed for pain. 5. Colace 100 mg p.o. b.i.d. as needed for constipation. 6. Fentanyl 37.5 mcg topical daily. 7. Fluticasone nasal spray 50 mcg 1 spray to both nares daily. 8. Gabapentin 800 mg p.o. b.i.d. 9. Imdur 30 mg p.o. daily. 10. Metoprolol tartrate 100 mg p.o. daily. 11. Multivitamin 1 tablet p.o. daily. 12. Nitroglycerin 0.4 mg sublingual q.5 minutes p.r.n. chest pain. 13. Fish oil 2000 mg p.o. daily. 14. Oxycodone 5 mg every 6 hours as needed for pain. 15. OxyContin 40 mg p.o. t.i.d. 16. Ranitidine 300 mg p.o. daily. 17. Artificial tears 1 drop to both eyes b.i.d. 18. Rosuvastatin 10 mg p.o. daily. 19. Sertraline 200 mg p.o. daily. Medication change: 1. Warfarin was decreased to 5 mg p.o. daily. HOSPITAL COURSE: Mrs. Nayak is an 82-year-old lady with a past medical history as stated above who presented to the emergency room on 11/07/18 with complaints of abdominal pain associated with multiple episodes of diarrhea and vomiting. For more details about her presentation, I refer you to her history and physical. 1. Partial small bowel obstruction versus viral gastroenteritis. On admission , the patient had a CT of the abdomen and pelvis that showed mild fluid filled distended mid and distal small bowel suggestive of a partial obstruction, less likely an ileus. Status post cholecystectomy and incidental finding of mild splenomegaly with multiple small lesions and recommendation was for clinical correlation and follow up to demonstrate stability. Initially, the impression was the patient could have a partial small bowel obstruction. She was kept n.p.o. and received conservative treatment. She had followup abdominal x-rays that were mostly compatible with ileus. She was seen in consultation by General Surgery and there was a question if this was truly small bowel obstruction as it may be the patient had an ileus secondary to a viral gastroenteritis considering her description of multiple episodes of nausea and vomiting associated with watery diarrhea. Looking at her labs, the patient did develop leukopenia and thrombocytopenia that are now recovering associated with lymphopenia what would suggest a viral infection. Stool workup was sent and it was negative for Shiga toxin, C. diff, and rotavirus. There was no occult blood, only fecal lactoferrin was positive. The patient had progressive symptomatic improvement and she was able to tolerate an oral diet. Looking at the whole picture, I believe the patient probably had an ileus associated with viral gastroenteritis. 2. Supratherapeutic INR. The patient's INR on admission was 3.1 and it trended up to 5.8. Her warfarin was held, but the patient had no signs of bleeding, so she did not receive vitamin K. Her last INR on the day of discharge is 3.47 and the plan is for her to have another INR checked at [facility] tomorrow and to resume her warfarin at a lower dose from 7 to 5 mg daily. I contacted the physician's office and her primary care provider, Dr. Adler, is not available this week, but I did talk to Dr. Michael Jordan so someone can followup on her INR and adjust her warfarin dose accordingly. The patient had improvement of her symptoms. She was able to tolerate an oral diet and she was thought to be stable for discharge. PHYSICAL EXAMINATION: Vital Signs: Temperature 98.0, heart rate 64, respiratory rate 16, oxygen saturation 96% on room air, blood pressure is 128/ 53. General: The patient is a pleasant elderly lady, sitting up in bed, in no acute distress. CVS: Normal S1, S2. Regular rate and rhythm. Chest: Breath sounds bilaterally with no added sounds. Abdomen is soft with mild epigastric tenderness. No guarding. No rebound. Bowel sounds are present. Neuro: She is alert and oriented x3. She moves all 4 extremities. DIET: The patient was advised to follow a low fiber diet for 2 weeks. ACTIVITIES: As tolerated. DISPOSITION: To home. STATUS WHILE IN THE HOSPITAL: Inpatient. CONDITION AT THE TIME OF DISCHARGE: Fair. The patient was advised about signs and symptoms that will prompt her return to the emergency department. Please keep in mind, this is a summarized version of this patient's hospital stay. If you need more information, please feel free to call me at [phone] or please obtain the full medical records. TIME SPENT: Approximately 45 minutes was spent to complete this discharge. [id number]/CAROL #: [id number] SALUD
== END 2018-11-11 12:30 | disposition home or self-care (01) | DRG 390 ==
LOC: ED 11:23 → MED 16:04 → OBSVTOIN 11-08 14:00 → MED 11-10 03:45
PROVIDERS: ADMIT Student in an Organized Health Care Education/Training Program; ATTEND Internal Medicine
DX: K56.600 Partial intestinal obstruction, unspecified as to cause (principal); K56.7 Ileus, unspecified; A08.4 Viral intestinal infection, unspecified; R79.1 Abnormal coagulation profile; D69.6 Thrombocytopenia, unspecified; J44.9 Chronic obstructive pulmonary disease, unspecified; I25.10 Atherosclerotic heart disease of native coronary artery without angina pectoris; K64.9 Unspecified hemorrhoids; M54.9 Dorsalgia, unspecified; D72.818 Other decreased white blood cell count; K21.9 Gastro-esophageal reflux disease without esophagitis; F32.9 Major depressive disorder, single episode, unspecified; Z96.641 Presence of right artificial hip joint; Z96.652 Presence of left artificial knee joint; Z95.5 Presence of coronary angioplasty implant and graft; Z86.718 Personal history of other venous thrombosis and embolism; Z87.891 Personal history of nicotine dependence; Z86.711 Personal history of pulmonary embolism; Z80.3 Family history of malignant neoplasm of breast; Z80.8 Family history of malignant neoplasm of other organs or systems; Z82.61 Family history of arthritis; Z83.2 Family history of diseases of the blood and blood-forming organs and certain disorders involving the immune mechanism; Z79.01 Long term (current) use of anticoagulants; Z79.82 Long term (current) use of aspirin; Z79.891 Long term (current) use of opiate analgesic; Z79.899 Other long term (current) drug therapy
CPT/HCPCS: 36415; 74019; 74177; 80048; 80053; 81003; 81015; 82270; 83605; 83630; 83690; 83735; 84100; 85025; 85027; 85060; 85610; 85730; 86140; 86850; 86900; 86901; 87045; 87046; 87077; 87086; 87425; 87493; 87899; 99284; A9270-GY; G0378; J1170; J2270; J2405; J3475; J3480; Q9967

== ENCOUNTER 2022-06-01 14:31 | Inpatient (IN) ==
[2022-06-01] MEDS ORDERED: Lactated Ringers 1000 ml BAG 1,000 ML IV ONE (17:07)
[2022-06-01] MEDS ORDERED: fentaNYL 100 mcg/2 ml 50 MCG/ML VIAL IV SLOW PU ONE (17:08)
[2022-06-01 17:34] LABS: ABS Eosinophils 0.1 10^3/ul (0-0.6); ABS Lymphocytes 1.1 10^3/ul (1.0-4.8); ABS Monocytes 0.4 10^3/ul (0-0.8); ABS Neutrophils 4.1 10^3/ul (1.5-7.7); Eosinophil % 1.9 %; Hematocrit 34 % (35-47); Hemoglobin 11.2 g/dL (12.0-16.0); Lymphocyte % 18.9 %; Mean Corpuscular HGB Conc 33 g/dL (31-36); Mean Corpuscular Hemoglobin 30 pg (27-31); Mean Corpuscular Volume 91 fL (80-97); Mean Platelet Volume 7.6 fL (7.4-10.4); Platelet Count 128 10^3/uL (150-450); Red Blood Count 3.76 10^6 /uL (3.70-4.87); Red Cell Distribution Width 16 % (10-15); White Blood Count 5.7 10^3/uL (3.5-10.8)
[2022-06-01 18:13] LABS: Albumin 3.7 g/dL (3.2-5.2); Albumin/Globulin Ratio 1.9 (1-3); C Reactive Protein 3.08 mg/L (<8.01); Calcium 9.5 mg/dL (8.6-10.3); Globulin 1.9 g/dL (2-4); Potassium 4.2 mmol/L (3.5-5.0); Total Bilirubin 0.4 mg/dL (0.2-1.0); Total Protein 5.6 g/dL (6.4-8.9); eGFR CKD-EPI 60.2 (>60)
[2022-06-01 21:14] LABS: INR 2.8 (0.89-1.11)
[2022-06-01 21:15] LABS: Urine Appearance Cloudy; Urine Bilirubin Negative (Negative); Urine Blood Negative (Negative); Urine Color Yellow; Urine Glucose Negative (Negative); Urine Ketones Negative (Negative); Urine Nitrite Negative (Negative); Urine Protein Negative (Negative); Urine Specific Gravity 1.017 (1.002-1.030); Urine Urobilinogen Negative (Negative)
[2022-06-01 23:33] LABS: High Sensitivity Troponin 1 Hr 15 pg/mL (<15)
[2022-06-02] MEDS: Morphine 2 MG/ML SYRINGE IV PRN ×3 (00:32→10:07)
[2022-06-02] MEDS ORDERED: oxyCODONE/Acetamin 5/325 mg TAB PO PRN (03:39)
[2022-06-02] MEDS ORDERED: Warfarin per PHARMACY **NOTE FOLLOW UP SCH ×2 (08:00)
[2022-06-02] MEDS: Mometasone/Formoter 100/5 MDI INH SCH ×2 (09:06→19:46)
[2022-06-02] MEDS ORDERED: Al Hydrox/Mg Hydrox/Simet LIQ 30 ML UDC PO PRN (09:53)
[2022-06-02] MEDS ORDERED: Magnesium Hydroxide LIQ 30 ML UDC PO PRN (09:53)
[2022-06-02 10:01] LABS: Urine Appearance Clear; Urine Bilirubin Negative (Negative); Urine Blood Negative (Negative); Urine Color Yellow; Urine Glucose Negative (Negative); Urine Ketones Negative (Negative); Urine Nitrite Negative (Negative); Urine Protein Negative (Negative); Urine Specific Gravity 1.012 (1.002-1.030); Urine Urobilinogen Negative (Negative)
[2022-06-02] MEDS: Isosorbide Mononit ER 30mg TAB PO SCH (10:01)
[2022-06-02] MEDS: Aspirin EC 81 mg TAB.EC (enteric coated) PO SCH (10:01)
[2022-06-02] MEDS: Cholecalciferol (VIT D3) 1,000 unit TAB PO SCH (10:01)
[2022-06-03 06:16] LABS: INR 4.3 (0.89-1.11)
[2022-06-03] MEDS: Mometasone/Formoter 100/5 MDI INH SCH ×2 (06:56→20:56)
[2022-06-03] MEDS: Aspirin EC 81 mg TAB.EC (enteric coated) PO SCH (07:40)
[2022-06-03] MEDS: Cholecalciferol (VIT D3) 1,000 unit TAB PO SCH (07:40)
[2022-06-03] MEDS: Isosorbide Mononit ER 30mg TAB PO SCH (07:40)
[2022-06-03] MEDS ORDERED: methylPREDNISolone SOD SUCC 40 mg/ml 1 ml VIAL IV ONE (08:26)
[2022-06-03] MEDS ORDERED: Lactated Ringers 1000 ml BAG 1,000 ML IV ONE (10:51)
[2022-06-03 11:25] LABS: ABS Eosinophils 0.1 10^3/ul (0-0.6); ABS Lymphocytes 0.6 10^3/ul (1.0-4.8); ABS Monocytes 0.4 10^3/ul (0-0.8); ABS Neutrophils 5.1 10^3/ul (1.5-7.7); Eosinophil % 1.9 %; Hematocrit 35 % (35-47); Hemoglobin 11.7 g/dL (12.0-16.0); Lymphocyte % 9.7 %; Mean Corpuscular HGB Conc 33 g/dL (31-36); Mean Corpuscular Hemoglobin 30 pg (27-31); Mean Corpuscular Volume 89 fL (80-97); Nucleated Red Blood Cells % 0.1; Platelet Count 114 10^3/uL (150-450); Red Blood Count 3.97 10^6 /uL (3.70-4.87); Red Cell Distribution Width 16 % (10-15); White Blood Count 6.3 10^3/uL (3.5-10.8)
[2022-06-03 11:43] LABS: Calcium 9.7 mg/dL (8.6-10.3); Potassium 4.1 mmol/L (3.5-5.0); eGFR CKD-EPI 74.4 (>60)
[2022-06-03] MEDS ORDERED: Warfarin - No Order Today **NOTE FOLLOW UP ONE (17:00)
[2022-06-03] MEDS ORDERED: Albuterol HFA INHALER 8 gm MDI INH PRN (18:15)
[2022-06-03] MEDS ORDERED: Albuterol 2.5mg/3 ml (0.083%) NEB.SOLN INH PRN (19:18)
[2022-06-04] MEDS ORDERED: D5LR 1000 ml BAG 1,000 ML IV SCH (01:00)
[2022-06-04] MEDS: Morphine 2 MG/ML SYRINGE IV PRN ×6 (02:11→21:47)
[2022-06-04 07:15] LABS: INR 5.35 (0.89-1.11)
[2022-06-04] MEDS: Isosorbide Mononit ER 30mg TAB PO SCH (09:21)
[2022-06-04] MEDS: Cholecalciferol (VIT D3) 1,000 unit TAB PO SCH (09:21)
[2022-06-04] MEDS: Aspirin EC 81 mg TAB.EC (enteric coated) PO SCH (09:22)
[2022-06-04] MEDS: Mometasone/Formoter 100/5 MDI INH SCH ×2 (10:08→19:35)
[2022-06-04 10:49] LABS: PCO2 Arterial 49 mmHg (35-45); PO2 Arterial 103 mmHg (80-100)
[2022-06-04] MEDS ORDERED: Warfarin - No Order Today **NOTE FOLLOW UP ONE (17:00)
[2022-06-04] MEDS ORDERED: Lactated Ringers 1000 ml BAG 1,000 ML IV ONE (17:51)
[2022-06-04] MEDS ORDERED: Metoprolol Tartrate 5 mg VIAL 5 ml VIAL (1 mg/ml) IV PRN (18:07)
[2022-06-04] MEDS: Lactated Ringers 1000 ml BAG 1,000 ML IV SCH (18:22)
[2022-06-04] MEDS: Metoprolol Tartrate 5 mg VIAL 5 ml VIAL (1 mg/ml) IV SCH ×2 (19:42→23:35)
[2022-06-05] MEDS: Morphine 2 MG/ML SYRINGE IV PRN ×5 (01:24→18:09)
[2022-06-05] MEDS: Lactated Ringers 1000 ml BAG 1,000 ML IV SCH ×2 (04:17→15:59)
[2022-06-05] MEDS: Metoprolol Tartrate 5 mg VIAL 5 ml VIAL (1 mg/ml) IV SCH ×4 (05:32→23:29)
[2022-06-05 06:03] LABS: ABS Eosinophils 0.2 10^3/ul (0-0.6); ABS Lymphocytes 0.7 10^3/ul (1.0-4.8); ABS Monocytes 0.6 10^3/ul (0-0.8); ABS Neutrophils 5.5 10^3/ul (1.5-7.7); Eosinophil % 2.5 %; Hematocrit 35 % (35-47); Hemoglobin 11.6 g/dL (12.0-16.0); Lymphocyte % 10.4 %; Mean Corpuscular HGB Conc 33 g/dL (31-36); Mean Corpuscular Hemoglobin 30 pg (27-31); Mean Corpuscular Volume 89 fL (80-97); Platelet Count 114 10^3/uL (150-450); Red Blood Count 3.95 10^6 /uL (3.70-4.87); Red Cell Distribution Width 16 % (10-15)
[2022-06-05 06:27] LABS: Calcium 9.6 mg/dL (8.6-10.3); Potassium 3.9 mmol/L (3.5-5.0); eGFR CKD-EPI 85.6 (>60)
[2022-06-05 06:56] LABS: INR 5.35 (0.89-1.11)
[2022-06-05] MEDS: Mometasone/Formoter 100/5 MDI INH SCH ×2 (07:45→19:40)
[2022-06-05] MEDS: Aspirin EC 81 mg TAB.EC (enteric coated) PO SCH (10:13)
[2022-06-05] MEDS: Acetaminophen IV 1 GM/100ML 1,000 MG/100 ML BAG IV PRN ×2 (10:19→23:59)
[2022-06-05] MEDS: Isosorbide Mononit ER 30mg TAB PO SCH (10:35)
[2022-06-05] MEDS: Cholecalciferol (VIT D3) 1,000 unit TAB PO SCH (10:35)
[2022-06-05] MEDS ORDERED: Warfarin - No Order Today **NOTE FOLLOW UP ONE (17:00)
[2022-06-05] MEDS: Nystatin TOP POWDER 15 GM BTL TOPICAL SCH (17:04)
[2022-06-06] MEDS: Morphine 2 MG/ML SYRINGE IV PRN ×6 (02:39→21:53)
[2022-06-06] MEDS: Lactated Ringers 1000 ml BAG 1,000 ML IV SCH ×2 (02:45→13:44)
[2022-06-06] MEDS: Metoprolol Tartrate 5 mg VIAL 5 ml VIAL (1 mg/ml) IV SCH ×4 (05:28→23:47)
[2022-06-06 06:02] LABS: INR 4.03 (0.89-1.11)
[2022-06-06] MEDS ORDERED: Enalaprilat IV 1.25 mg/ml 1 ml VIAL (1.25 MG) IV ONE (07:38)
[2022-06-06] MEDS: Acetaminophen IV 1 GM/100ML 1,000 MG/100 ML BAG IV PRN ×2 (08:55→22:57)
[2022-06-06] MEDS: Mometasone/Formoter 100/5 MDI INH SCH ×3 (09:01→21:42)
[2022-06-06] MEDS: Lidocaine PATCH 5% PATCH TRANSDERM SCH (09:20)
[2022-06-06] MEDS: Nystatin TOP POWDER 15 GM BTL TOPICAL SCH ×4 (09:20→21:42)
[2022-06-06] MEDS: Cholecalciferol (VIT D3) 1,000 unit TAB PO SCH (11:46)
[2022-06-06] MEDS: Isosorbide Mononit ER 30mg TAB PO SCH (11:46)
[2022-06-06] MEDS: Dextran 70/Hypromellose Tears Eye Drops 15 ml BTL (for Artificials Tears) BOTH EYES PRN ×2 (13:38→16:51)
[2022-06-06] MEDS ORDERED: Warfarin - No Order Today **NOTE FOLLOW UP ONE (17:00)
[2022-06-07] MEDS: Morphine 2 MG/ML SYRINGE IV PRN ×3 (03:17→20:50)
[2022-06-07] MEDS: Lactated Ringers 1000 ml BAG 1,000 ML IV SCH (03:18)
[2022-06-07] MEDS: Metoprolol Tartrate 5 mg VIAL 5 ml VIAL (1 mg/ml) IV SCH ×5 (05:07→18:21)
[2022-06-07 07:01] LABS: ABS Eosinophils 0.3 10^3/ul (0-0.6); ABS Lymphocytes 0.8 10^3/ul (1.0-4.8); ABS Monocytes 0.5 10^3/ul (0-0.8); ABS Neutrophils 4.9 10^3/ul (1.5-7.7); Hematocrit 36 % (35-47); Hemoglobin 11.8 g/dL (12.0-16.0); Lymphocyte % 12.4 %; Mean Corpuscular HGB Conc 33 g/dL (31-36); Mean Corpuscular Hemoglobin 29 pg (27-31); Mean Corpuscular Volume 89 fL (80-97); Mean Platelet Volume 8.2 fL (7.4-10.4); Platelet Count 127 10^3/uL (150-450); Red Blood Count 4.02 10^6 /uL (3.70-4.87); Red Cell Distribution Width 16 % (10-15); White Blood Count 6.5 10^3/uL (3.5-10.8)
[2022-06-07] MEDS: Mometasone/Formoter 100/5 MDI INH SCH ×2 (07:16→19:45)
[2022-06-07 07:24] LABS: INR 4.02 (0.89-1.11)
[2022-06-07 07:31] LABS: Calcium 9.4 mg/dL (8.6-10.3); eGFR CKD-EPI 87.9 (>60)
[2022-06-07] MEDS: Nystatin TOP POWDER 15 GM BTL TOPICAL SCH ×3 (10:15→20:47)
[2022-06-07] MEDS: Lidocaine PATCH 5% PATCH TRANSDERM SCH (10:16)
[2022-06-07] MEDS: Isosorbide Mononit ER 30mg TAB PO SCH (10:57)
[2022-06-07] MEDS: Cholecalciferol (VIT D3) 1,000 unit TAB PO SCH (10:57)
[2022-06-07] MEDS: Dextran 70/Hypromellose Tears Eye Drops 15 ml BTL (for Artificials Tears) BOTH EYES PRN (12:43)
[2022-06-07] MEDS ORDERED: Lactated Ringers 1000 ml BAG 1,000 ML IV ONE (13:39)
[2022-06-07] MEDS ORDERED: Warfarin - No Order Today **NOTE FOLLOW UP ONE (17:00)
[2022-06-08] MEDS: Metoprolol Tartrate 5 mg VIAL 5 ml VIAL (1 mg/ml) IV SCH ×5 (00:30→23:51)
[2022-06-08] MEDS: Morphine 2 MG/ML SYRINGE IV PRN ×4 (00:31→23:50)
[2022-06-08 08:18] LABS: ABS Eosinophils 0.2 10^3/ul (0-0.6); ABS Lymphocytes 0.9 10^3/ul (1.0-4.8); ABS Monocytes 0.6 10^3/ul (0-0.8); ABS Neutrophils 5.5 10^3/ul (1.5-7.7); Eosinophil % 3.2 %; Hematocrit 38 % (35-47); Hemoglobin 12.5 g/dL (12.0-16.0); Lymphocyte % 12.2 %; Mean Corpuscular HGB Conc 34 g/dL (31-36); Mean Corpuscular Hemoglobin 30 pg (27-31); Mean Corpuscular Volume 89 fL (80-97); Nucleated Red Blood Cells % 0.1; Platelet Count 131 10^3/uL (150-450); Red Blood Count 4.22 10^6 /uL (3.70-4.87); Red Cell Distribution Width 16 % (10-15); White Blood Count 7.2 10^3/uL (3.5-10.8)
[2022-06-08 08:21] LABS: INR 4.26 (0.89-1.11)
[2022-06-08] MEDS: Mometasone/Formoter 100/5 MDI INH SCH ×2 (08:39→19:37)
[2022-06-08 08:54] LABS: Calcium 9.8 mg/dL (8.6-10.3)
[2022-06-08] MEDS: Lactated Ringers 1000 ml BAG 1,000 ML IV SCH ×2 (10:40→20:55)
[2022-06-08] MEDS: Dextran 70/Hypromellose Tears Eye Drops 15 ml BTL (for Artificials Tears) BOTH EYES PRN (11:12)
[2022-06-08] MEDS: Lidocaine PATCH 5% PATCH TRANSDERM SCH (11:12)
[2022-06-08] MEDS: Nystatin TOP POWDER 15 GM BTL TOPICAL SCH ×3 (11:33→23:05)
[2022-06-08] MEDS: Isosorbide Mononit ER 30mg TAB PO SCH (11:34)
[2022-06-08] MEDS: Cholecalciferol (VIT D3) 1,000 unit TAB PO SCH (11:34)
[2022-06-08] MEDS: Acetaminophen IV 1 GM/100ML 1,000 MG/100 ML BAG IV PRN (18:11)
[2022-06-08 18:21] LABS: TSH Ultra Thyroid Stim Horm 1.51 mcIU/mL (0.34-5.60)
[2022-06-08 18:32] LABS: Folate > 20.00 ng/mL (5.90-24.80)
[2022-06-08 18:33] LABS: Vitamin B12 1079 pg/mL (180-914)
[2022-06-09] MEDS: Metoprolol Tartrate 5 mg VIAL 5 ml VIAL (1 mg/ml) IV SCH ×3 (05:13→17:54)
[2022-06-09 06:26] LABS: INR 4.63 (0.89-1.11)
[2022-06-09] MEDS ORDERED: Morphine 2 MG/ML SYRINGE IV PRN (07:17)
[2022-06-09] MEDS: Lactated Ringers 1000 ml BAG 1,000 ML IV SCH ×2 (07:21→17:54)
[2022-06-09] MEDS: Mometasone/Formoter 100/5 MDI INH SCH ×2 (08:19→19:12)
[2022-06-09] MEDS: Lidocaine PATCH 5% PATCH TRANSDERM SCH (08:50)
[2022-06-09] MEDS: Isosorbide Mononit ER 30mg TAB PO SCH (08:55)
[2022-06-09] MEDS: Cholecalciferol (VIT D3) 1,000 unit TAB PO SCH (08:55)
[2022-06-09] MEDS: Nystatin TOP POWDER 15 GM BTL TOPICAL SCH ×3 (10:38→21:53)
[2022-06-09] MEDS: Dextran 70/Hypromellose Tears Eye Drops 15 ml BTL (for Artificials Tears) BOTH EYES PRN ×2 (10:38→15:47)
[2022-06-10] MEDS: Morphine 2 MG/ML SYRINGE IV PRN (00:11)
[2022-06-10] MEDS: Metoprolol Tartrate 5 mg VIAL 5 ml VIAL (1 mg/ml) IV SCH ×4 (00:11→18:34)
[2022-06-10] MEDS ORDERED: Lorazepam PYXIS KEY PRN ×2 (02:26→21:59)
[2022-06-10] MEDS ORDERED: LORazepam 2 mg VIAL 1 ml IV PUSH ONE ×2 (02:26→21:59)
[2022-06-10] MEDS: Lactated Ringers 1000 ml BAG 1,000 ML IV SCH ×3 (03:34→23:47)
[2022-06-10 06:23] LABS: ABS Eosinophils 0.3 10^3/ul (0-0.6); ABS Monocytes 0.7 10^3/ul (0-0.8); ABS Neutrophils 6.3 10^3/ul (1.5-7.7); Eosinophil % 3.6 %; Hematocrit 36 % (35-47); Lymphocyte % 11.7 %; Mean Corpuscular HGB Conc 33 g/dL (31-36); Mean Corpuscular Hemoglobin 29 pg (27-31); Mean Corpuscular Volume 89 fL (80-97); Mean Platelet Volume 8.6 fL (7.4-10.4); Nucleated Red Blood Cells % 0.1; Platelet Count 135 10^3/uL (150-450); Red Blood Count 4.06 10^6 /uL (3.70-4.87); Red Cell Distribution Width 16 % (10-15); White Blood Count 8.3 10^3/uL (3.5-10.8)
[2022-06-10 06:29] LABS: INR 4.09 (0.89-1.11)
[2022-06-10 06:47] LABS: Calcium 9.9 mg/dL (8.6-10.3); Potassium 3.7 mmol/L (3.5-5.0); eGFR CKD-EPI 89.4 (>60)
[2022-06-10] MEDS: Mometasone/Formoter 100/5 MDI INH SCH ×2 (07:20→20:36)
[2022-06-10] MEDS: Dextran 70/Hypromellose Tears Eye Drops 15 ml BTL (for Artificials Tears) BOTH EYES PRN (08:45)
[2022-06-10] MEDS: Acetaminophen IV 1 GM/100ML 1,000 MG/100 ML BAG IV PRN (08:46)
[2022-06-10] MEDS: Nystatin TOP POWDER 15 GM BTL TOPICAL SCH ×3 (08:46→23:30)
[2022-06-10] MEDS: Lidocaine PATCH 5% PATCH TRANSDERM SCH (08:46)
[2022-06-10] MEDS: Isosorbide Mononit ER 30mg TAB PO SCH ×2 (11:19→11:30)
[2022-06-10] MEDS: Cholecalciferol (VIT D3) 1,000 unit TAB PO SCH ×2 (11:19→11:29)
[2022-06-10] MEDS ORDERED: Warfarin - No Order Today **NOTE FOLLOW UP ONE (17:00)
[2022-06-11] MEDS: Morphine 2 MG/ML SYRINGE IV PRN (00:29)
[2022-06-11] MEDS: Metoprolol Tartrate 5 mg VIAL 5 ml VIAL (1 mg/ml) IV SCH ×5 (00:56→21:44)
[2022-06-11 06:20] LABS: ABS Eosinophils 0.3 10^3/ul (0-0.6); ABS Lymphocytes 0.7 10^3/ul (1.0-4.8); ABS Monocytes 0.7 10^3/ul (0-0.8); ABS Neutrophils 6.7 10^3/ul (1.5-7.7); Hematocrit 37 % (35-47); Hemoglobin 12.3 g/dL (12.0-16.0); Lymphocyte % 8.7 %; Mean Corpuscular HGB Conc 33 g/dL (31-36); Mean Corpuscular Hemoglobin 29 pg (27-31); Mean Corpuscular Volume 88 fL (80-97); Mean Platelet Volume 8.3 fL (7.4-10.4); Platelet Count 142 10^3/uL (150-450); Red Blood Count 4.21 10^6 /uL (3.70-4.87); Red Cell Distribution Width 16 % (10-15); White Blood Count 8.4 10^3/uL (3.5-10.8)
[2022-06-11 06:49] LABS: Calcium 9.9 mg/dL (8.6-10.3); Magnesium 1.4 mg/dL (1.9-2.7); Potassium 3.5 mmol/L (3.5-5.0); eGFR CKD-EPI 91.4 (>60)
[2022-06-11 07:12] LABS: INR 3.21 (0.89-1.11)
[2022-06-11] MEDS: Mometasone/Formoter 100/5 MDI INH SCH ×2 (07:20→19:07)
[2022-06-11] MEDS ORDERED: Magnesium Sulf 4 GM/100 ML IV 4,000 MG/100 ML BAG IVPB ONE (08:00)
[2022-06-11] MEDS: Lidocaine PATCH 5% PATCH TRANSDERM SCH (10:22)
[2022-06-11] MEDS: Cholecalciferol (VIT D3) 1,000 unit TAB PO SCH (10:38)
[2022-06-11] MEDS: Isosorbide Mononit ER 30mg TAB PO SCH (10:38)
[2022-06-11] MEDS: Lactated Ringers 1000 ml BAG 1,000 ML IV SCH (10:59)
[2022-06-11] MEDS: Nystatin TOP POWDER 15 GM BTL TOPICAL SCH ×3 (11:07→19:51)
[2022-06-11] MEDS: Dextran 70/Hypromellose Tears Eye Drops 15 ml BTL (for Artificials Tears) BOTH EYES PRN (11:07)
[2022-06-11] MEDS ORDERED: Warfarin - No Order Today **NOTE FOLLOW UP ONE (17:00)
[2022-06-11 20:27] LABS: Anaplasma phagocytophilum Negative (Negative); B. miyamotoi PCR, B Negative (Negative); Babesia divergens/MO-1 Negative (Negative); Babesia ducani Negative (Negative); Ehrlichia chaffeensis Negative (Negative); Ehrlichia ewingii/canis Negative (Negative); Ehrlichia muris eauclairensis Negative (Negative)
[2022-06-12] MEDS: Lactated Ringers 1000 ml BAG 1,000 ML IV SCH ×2 (01:52→12:26)
[2022-06-12] MEDS: Metoprolol Tartrate 5 mg VIAL 5 ml VIAL (1 mg/ml) IV SCH ×4 (04:23→21:43)
[2022-06-12 06:43] LABS: ABS Eosinophils 0.2 10^3/ul (0-0.6); ABS Lymphocytes 0.9 10^3/ul (1.0-4.8); ABS Monocytes 0.6 10^3/ul (0-0.8); ABS Neutrophils 6.2 10^3/ul (1.5-7.7); Eosinophil % 2.3 %; Hematocrit 34 % (35-47); Hemoglobin 11.8 g/dL (12.0-16.0); Lymphocyte % 11.6 %; Mean Corpuscular HGB Conc 34 g/dL (31-36); Mean Corpuscular Hemoglobin 31 pg (27-31); Mean Corpuscular Volume 89 fL (80-97); Mean Platelet Volume 8.6 fL (7.4-10.4); Nucleated Red Blood Cells % 0.1; Platelet Count 136 10^3/uL (150-450); Red Blood Count 3.85 10^6 /uL (3.70-4.87); Red Cell Distribution Width 16 % (10-15)
[2022-06-12 06:47] LABS: INR 2.72 (0.89-1.11)
[2022-06-12 07:02] LABS: Calcium 9.4 mg/dL (8.6-10.3); Potassium 3.5 mmol/L (3.5-5.0); eGFR CKD-EPI 85.9 (>60)
[2022-06-12] MEDS: Mometasone/Formoter 100/5 MDI INH SCH ×2 (07:18→21:21)
[2022-06-12] MEDS: Cholecalciferol (VIT D3) 1,000 unit TAB PO SCH (09:36)
[2022-06-12] MEDS: Isosorbide Mononit ER 30mg TAB PO SCH (09:36)
[2022-06-12] MEDS: Nystatin TOP POWDER 15 GM BTL TOPICAL SCH ×3 (09:39→21:58)
[2022-06-12] MEDS: Lidocaine PATCH 5% PATCH TRANSDERM SCH ×2 (09:44→15:09)
[2022-06-12] MEDS: Acetaminophen IV 1 GM/100ML 1,000 MG/100 ML BAG IV PRN ×2 (15:17→21:50)
[2022-06-12] MEDS: Warfarin DAILY REMINDER **NOTE FOLLOW UP SCH (17:07)
[2022-06-13] MEDS: Dextran 70/Hypromellose Tears Eye Drops 15 ml BTL (for Artificials Tears) BOTH EYES PRN ×2 (01:33→12:02)
[2022-06-13] MEDS: Morphine 2 MG/ML SYRINGE IV PRN ×2 (02:33→15:11)
[2022-06-13] MEDS: Metoprolol Tartrate 5 mg VIAL 5 ml VIAL (1 mg/ml) IV SCH ×4 (04:46→21:57)
[2022-06-13 06:14] LABS: INR 1.47 (0.89-1.11)
[2022-06-13] MEDS: Mometasone/Formoter 100/5 MDI INH SCH ×2 (08:42→18:52)
[2022-06-13 11:15] LABS: PCO2 Arterial 46 mmHg (35-45); PO2 Arterial 140 mmHg (80-100)
[2022-06-13] MEDS: Enoxaparin 80 MG/0.8 ML SYR SUBCUT SCH ×2 (11:51→21:52)
[2022-06-13] MEDS: Cholecalciferol (VIT D3) 1,000 unit TAB PO SCH (11:52)
[2022-06-13] MEDS: Isosorbide Mononit ER 30mg TAB PO SCH (11:52)
[2022-06-13] MEDS: Lidocaine PATCH 5% PATCH TRANSDERM SCH (11:52)
[2022-06-13] MEDS: Nystatin TOP POWDER 15 GM BTL TOPICAL SCH ×4 (11:53→21:54)
[2022-06-13] MEDS ORDERED: Lorazepam PYXIS KEY PRN (13:43)
[2022-06-13] MEDS ORDERED: LORazepam 2 mg VIAL 1 ml IV PUSH ONE (13:43)
[2022-06-13] MEDS: Warfarin DAILY REMINDER **NOTE FOLLOW UP SCH (21:51)
[2022-06-14] MEDS: Metoprolol Tartrate 5 mg VIAL 5 ml VIAL (1 mg/ml) IV SCH ×4 (04:36→21:46)
[2022-06-14 06:27] LABS: INR 2.25 (0.89-1.11)
[2022-06-14] MEDS: Mometasone/Formoter 100/5 MDI INH SCH ×2 (07:56→19:09)
[2022-06-14] MEDS: Enoxaparin 80 MG/0.8 ML SYR SUBCUT SCH ×2 (10:26→21:45)
[2022-06-14] MEDS: Cholecalciferol (VIT D3) 1,000 unit TAB PO SCH ×2 (10:27→10:43)
[2022-06-14] MEDS: Lidocaine PATCH 5% PATCH TRANSDERM SCH (10:27)
[2022-06-14] MEDS: Isosorbide Mononit ER 30mg TAB PO SCH ×2 (10:27→10:43)
[2022-06-14] MEDS: Nystatin TOP POWDER 15 GM BTL TOPICAL SCH ×3 (10:28→21:49)
[2022-06-14] MEDS: Warfarin DAILY REMINDER **NOTE FOLLOW UP SCH (16:24)
[2022-06-14] MEDS: Morphine 2 MG/ML SYRINGE IV PRN (17:38)
[2022-06-15] MEDS: Morphine 2 MG/ML SYRINGE IV PRN (00:42)
[2022-06-15] MEDS: Metoprolol Tartrate 5 mg VIAL 5 ml VIAL (1 mg/ml) IV SCH ×3 (04:32→16:25)
[2022-06-15 06:20] LABS: ABS Eosinophils 0.1 10^3/ul (0-0.6); ABS Monocytes 0.6 10^3/ul (0-0.8); ABS Neutrophils 3.4 10^3/ul (1.5-7.7); Eosinophil % 2.2 %; Hematocrit 35 % (35-47); Hemoglobin 11.9 g/dL (12.0-16.0); Lymphocyte % 18.8 %; Mean Corpuscular HGB Conc 34 g/dL (31-36); Mean Corpuscular Hemoglobin 30 pg (27-31); Mean Corpuscular Volume 89 fL (80-97); Mean Platelet Volume 8.2 fL (7.4-10.4); Platelet Count 135 10^3/uL (150-450); Red Blood Count 3.97 10^6 /uL (3.70-4.87); Red Cell Distribution Width 16 % (10-15); White Blood Count 5.1 10^3/uL (3.5-10.8)
[2022-06-15 06:32] LABS: Calcium 9.8 mg/dL (8.6-10.3); Magnesium 1.7 mg/dL (1.9-2.7); Potassium 3.9 mmol/L (3.5-5.0); eGFR CKD-EPI 86.9 (>60)
[2022-06-15 06:41] LABS: INR 4.08 (0.89-1.11)
[2022-06-15] MEDS: Mometasone/Formoter 100/5 MDI INH SCH ×2 (09:09→19:08)
[2022-06-15] MEDS: Enoxaparin 80 MG/0.8 ML SYR SUBCUT SCH (09:46)
[2022-06-15] MEDS: Nystatin TOP POWDER 15 GM BTL TOPICAL SCH ×3 (09:47→21:47)
[2022-06-15] MEDS: Lidocaine PATCH 5% PATCH TRANSDERM SCH (09:52)
[2022-06-15] MEDS: Isosorbide Mononit ER 30mg TAB PO SCH (11:01)
[2022-06-15] MEDS: Cholecalciferol (VIT D3) 1,000 unit TAB PO SCH (11:01)
[2022-06-15] MEDS: Acetaminophen IV 1 GM/100ML 1,000 MG/100 ML BAG IV PRN (14:08)
[2022-06-15] MEDS: Warfarin DAILY REMINDER **NOTE FOLLOW UP SCH (15:39)
[2022-06-15] MEDS ORDERED: Magnesium Sulfate 2 gm BAG 2 GM/50 ML BAG IVPB ONE (16:25)
[2022-06-15] MEDS ORDERED: Warfarin - No Order Today **NOTE FOLLOW UP ONE (17:00)
[2022-06-16] MEDS: Metoprolol Tartrate 5 mg VIAL 5 ml VIAL (1 mg/ml) IV SCH ×3 (00:07→10:28)
[2022-06-16 06:47] LABS: Hematocrit 37 % (35-47); Hemoglobin 12.1 g/dL (12.0-16.0); Mean Corpuscular HGB Conc 33 g/dL (31-36); Mean Corpuscular Hemoglobin 29 pg (27-31); Mean Corpuscular Volume 90 fL (80-97); Mean Platelet Volume 8.1 fL (7.4-10.4); Platelet Count 141 10^3/uL (150-450); Red Blood Count 4.15 10^6 /uL (3.70-4.87); Red Cell Distribution Width 16 % (10-15); White Blood Count 5.7 10^3/uL (3.5-10.8)
[2022-06-16 07:08] LABS: INR 5.38 (0.89-1.11)
[2022-06-16] MEDS: Mometasone/Formoter 100/5 MDI INH SCH ×2 (07:10→19:07)
[2022-06-16] MEDS: Lidocaine PATCH 5% PATCH TRANSDERM SCH (07:33)
[2022-06-16] MEDS: Cholecalciferol (VIT D3) 1,000 unit TAB PO SCH (07:40)
[2022-06-16] MEDS: Isosorbide Mononit ER 30mg TAB PO SCH (07:40)
[2022-06-16 08:04] LABS: Calcium 10.1 mg/dL (8.6-10.3); Potassium 3.9 mmol/L (3.5-5.0); eGFR CKD-EPI 86.5 (>60)
[2022-06-16] MEDS: Acetaminophen IV 1 GM/100ML 1,000 MG/100 ML BAG IV PRN (10:56)
[2022-06-16] MEDS: Nystatin TOP POWDER 15 GM BTL TOPICAL SCH ×3 (13:16→19:42)
[2022-06-16] MEDS ORDERED: Warfarin - No Order Today **NOTE FOLLOW UP ONE (17:00)
[2022-06-16] MEDS: Dextran 70/Hypromellose Tears Eye Drops 15 ml BTL (for Artificials Tears) BOTH EYES PRN (17:26)
[2022-06-16] MEDS: Warfarin DAILY REMINDER **NOTE FOLLOW UP SCH (19:43)
[2022-06-17 06:37] LABS: Hematocrit 36 % (35-47); Hemoglobin 11.9 g/dL (12.0-16.0); Mean Corpuscular HGB Conc 33 g/dL (31-36); Mean Corpuscular Hemoglobin 30 pg (27-31); Mean Corpuscular Volume 89 fL (80-97); Mean Platelet Volume 8.7 fL (7.4-10.4); Platelet Count 140 10^3/uL (150-450); Red Cell Distribution Width 16 % (10-15); White Blood Count 5.3 10^3/uL (3.5-10.8)
[2022-06-17 06:42] LABS: INR 4.61 (0.89-1.11)
[2022-06-17 06:45] LABS: Calcium 10.3 mg/dL (8.6-10.3); Potassium 3.8 mmol/L (3.5-5.0); eGFR CKD-EPI 86.5 (>60)
[2022-06-17] MEDS: Mometasone/Formoter 100/5 MDI INH SCH ×3 (08:43→19:47)
[2022-06-17] MEDS: Lidocaine PATCH 5% PATCH TRANSDERM SCH (09:22)
[2022-06-17] MEDS: Cholecalciferol (VIT D3) 1,000 unit TAB PO SCH (10:08)
[2022-06-17] MEDS: Nystatin TOP POWDER 15 GM BTL TOPICAL SCH ×3 (10:08→20:21)
[2022-06-17] MEDS: Isosorbide Mononit ER 30mg TAB PO SCH (10:08)
[2022-06-17] MEDS: Dextran 70/Hypromellose Tears Eye Drops 15 ml BTL (for Artificials Tears) BOTH EYES PRN (12:58)
[2022-06-17] MEDS ORDERED: Warfarin - No Order Today **NOTE FOLLOW UP ONE (17:00)
[2022-06-17] MEDS: Warfarin DAILY REMINDER **NOTE FOLLOW UP SCH (18:06)
[2022-06-18] MEDS: Mometasone/Formoter 100/5 MDI INH SCH ×2 (06:55→19:53)
[2022-06-18 08:05] LABS: INR 3.1 (0.89-1.11)
[2022-06-18] MEDS: Lidocaine PATCH 5% PATCH TRANSDERM SCH (09:24)
[2022-06-18] MEDS: Cholecalciferol (VIT D3) 1,000 unit TAB PO SCH (09:25)
[2022-06-18] MEDS: Isosorbide Mononit ER 30mg TAB PO SCH (09:25)
[2022-06-18] MEDS: Nystatin TOP POWDER 15 GM BTL TOPICAL SCH ×3 (09:25→22:11)
[2022-06-18] MEDS: Dextran 70/Hypromellose Tears Eye Drops 15 ml BTL (for Artificials Tears) BOTH EYES PRN ×3 (09:26→22:11)
[2022-06-18] MEDS ORDERED: Lactated Ringers 1000 ml BAG 1,000 ML IV ONE (14:08)
[2022-06-18] MEDS: Warfarin DAILY REMINDER **NOTE FOLLOW UP SCH (22:08)
[2022-06-19] MEDS ORDERED: Haloperidol 5 mg/ml SDV IV/IM 5 MG/ML AMP IV SLOW PU ONE ×2 (01:36→01:39)
[2022-06-19] MEDS ORDERED: Haloperidol 5 mg/ml SDV IV/IM 5 MG/ML AMP IM ONE (01:48)
[2022-06-19 06:28] LABS: INR 3.3 (0.89-1.11)
[2022-06-19] MEDS: Mometasone/Formoter 100/5 MDI INH SCH ×2 (07:26→19:28)
[2022-06-19] MEDS: Dextran 70/Hypromellose Tears Eye Drops 15 ml BTL (for Artificials Tears) BOTH EYES PRN ×2 (08:22→13:50)
[2022-06-19] MEDS: Cholecalciferol (VIT D3) 1,000 unit TAB PO SCH ×2 (08:24→11:18)
[2022-06-19] MEDS: Isosorbide Mononit ER 30mg TAB PO SCH ×2 (08:24→11:17)
[2022-06-19] MEDS: Lidocaine PATCH 5% PATCH TRANSDERM SCH (08:55)
[2022-06-19] MEDS: Nystatin TOP POWDER 15 GM BTL TOPICAL SCH ×3 (08:56→20:10)
[2022-06-19] MEDS ORDERED: Warfarin - No Order Today **NOTE FOLLOW UP ONE (17:00)
[2022-06-19] MEDS: Warfarin DAILY REMINDER **NOTE FOLLOW UP SCH (17:57)
[2022-06-20 05:26] LABS: INR 4.19 (0.89-1.11)
[2022-06-20] MEDS: Mometasone/Formoter 100/5 MDI INH SCH ×2 (07:18→19:04)
[2022-06-20] MEDS: Cholecalciferol (VIT D3) 1,000 unit TAB PO SCH (08:21)
[2022-06-20] MEDS: Lidocaine PATCH 5% PATCH TRANSDERM SCH (08:21)
[2022-06-20] MEDS: Isosorbide Mononit ER 30mg TAB PO SCH (08:21)
[2022-06-20] MEDS: Nystatin TOP POWDER 15 GM BTL TOPICAL SCH ×4 (08:21→22:40)
[2022-06-20] MEDS: Dextran 70/Hypromellose Tears Eye Drops 15 ml BTL (for Artificials Tears) BOTH EYES PRN ×2 (09:00→12:26)
[2022-06-20] MEDS ORDERED: Warfarin - No Order Today **NOTE FOLLOW UP ONE (17:00)
[2022-06-20] MEDS: Warfarin DAILY REMINDER **NOTE FOLLOW UP SCH (22:39)
[2022-06-21 06:49] LABS: ABS Eosinophils 0.1 10^3/ul (0-0.6); ABS Lymphocytes 1.2 10^3/ul (1.0-4.8); ABS Monocytes 0.8 10^3/ul (0-0.8); ABS Neutrophils 4.8 10^3/ul (1.5-7.7); Eosinophil % 0.8 %; Hematocrit 38 % (35-47); Hemoglobin 12.8 g/dL (12.0-16.0); Lymphocyte % 17.2 %; Mean Corpuscular HGB Conc 34 g/dL (31-36); Mean Corpuscular Hemoglobin 30 pg (27-31); Mean Corpuscular Volume 89 fL (80-97); Mean Platelet Volume 9.2 fL (7.4-10.4); Nucleated Red Blood Cells % 0.1; Platelet Count 147 10^3/uL (150-450); Red Cell Distribution Width 16 % (10-15); White Blood Count 6.9 10^3/uL (3.5-10.8)
[2022-06-21 06:50] LABS: INR 4.19 (0.89-1.11)
[2022-06-21 07:13] LABS: Calcium 10.4 mg/dL (8.6-10.3); eGFR CKD-EPI 86.2 (>60)
[2022-06-21] MEDS: Mometasone/Formoter 100/5 MDI INH SCH ×2 (07:19→19:10)
[2022-06-21 08:51] LABS: Magnesium 1.5 mg/dL (1.9-2.7)
[2022-06-21] MEDS: Dextran 70/Hypromellose Tears Eye Drops 15 ml BTL (for Artificials Tears) BOTH EYES PRN (09:49)
[2022-06-21] MEDS: Isosorbide Mononit ER 30mg TAB PO SCH (09:49)
[2022-06-21] MEDS: Cholecalciferol (VIT D3) 1,000 unit TAB PO SCH (09:49)
[2022-06-21] MEDS: Nystatin TOP POWDER 15 GM BTL TOPICAL SCH ×2 (09:49→09:53)
[2022-06-21] MEDS: Lidocaine PATCH 5% PATCH TRANSDERM SCH (09:49)
[2022-06-21] MEDS ORDERED: Magnesium Sulfate 2 gm BAG 2 GM/50 ML BAG IVPB ONE (11:01)
[2022-06-21 13:26] LABS: Urine Appearance Cloudy; Urine Bilirubin Negative (Negative); Urine Blood 1+ (Negative); Urine Color Yellow; Urine Glucose Negative (Negative); Urine Ketones Trace (Negative); Urine Nitrite Positive (Negative); Urine Protein Negative (Negative); Urine Specific Gravity 1.014 (1.002-1.030); Urine Urobilinogen Negative (Negative)
[2022-06-21 14:11] LABS: Urine Bacteria 1+ (Absent); Urine Red Blood Cell 1+(3-5/hpf) (Absent); Urine Squamous Epithelial Cell Present (Absent); Urine White Blood Cell 2+(11-20/hpf) (Absent)
[2022-06-21] MEDS: Warfarin DAILY REMINDER **NOTE FOLLOW UP SCH (16:02)
[2022-06-21] MEDS ORDERED: Warfarin - No Order Today **NOTE FOLLOW UP ONE (17:00)
[2022-06-22] MEDS: Mometasone/Formoter 100/5 MDI INH SCH ×2 (06:50→19:36)
[2022-06-22 07:04] LABS: INR 3.14 (0.89-1.11)
[2022-06-22] MEDS: Isosorbide Mononit ER 30mg TAB PO SCH (10:22)
[2022-06-22] MEDS: Cholecalciferol (VIT D3) 1,000 unit TAB PO SCH (10:22)
[2022-06-22] MEDS: Lidocaine PATCH 5% PATCH TRANSDERM SCH ×2 (11:34→13:07)
[2022-06-22] MEDS ORDERED: Haloperidol 5 mg/ml SDV IV/IM 5 MG/ML AMP IM ONE (12:07)
[2022-06-22] MEDS: Dextran 70/Hypromellose Tears Eye Drops 15 ml BTL (for Artificials Tears) BOTH EYES PRN (16:36)
[2022-06-23 05:47] LABS: INR 2.66 (0.89-1.11)
[2022-06-23] MEDS: Mometasone/Formoter 100/5 MDI INH SCH ×2 (07:41→19:24)
[2022-06-23] MEDS: Cholecalciferol (VIT D3) 1,000 unit TAB PO SCH (08:14)
[2022-06-23] MEDS: Isosorbide Mononit ER 30mg TAB PO SCH (08:14)
[2022-06-23] MEDS: Lidocaine PATCH 5% PATCH TRANSDERM SCH ×3 (08:15→15:51)
[2022-06-23 08:40] LABS: Rapid COVID-19 Molecular Undetected (Undetected)
[2022-06-23 10:36] LABS: Urine Appearance Clear; Urine Bilirubin Negative (Negative); Urine Blood Negative (Negative); Urine Color Yellow; Urine Glucose Negative (Negative); Urine Ketones 1+ (15mg/dL) (Negative); Urine Nitrite Positive (Negative); Urine Protein Negative (Negative); Urine Urobilinogen 0.2 (Negative) (Negative); Urine pH 6.5 (5.0-9.0)
[2022-06-23 10:53] LABS: Urine Bacteria Absent (Absent); Urine Red Blood Cell Trace(0-2/hpf) (Absent); Urine Squamous Epithelial Cell Present (Absent); Urine White Blood Cell 3+(>20/hpf) (Absent)
[2022-06-23] MEDS: Morphine ORAL CONCENTRATE 5 MG/0.25 ML ORAL.SYRIN SL PRN (23:29)
[2022-06-24] MEDS ORDERED: Haloperidol 5 mg/ml SDV IV/IM 5 MG/ML AMP IM ONE (04:27)
[2022-06-24] MEDS: Morphine ORAL CONCENTRATE 5 MG/0.25 ML ORAL.SYRIN SL PRN (06:13)
[2022-06-24 06:43] LABS: ABS Lymphocytes 1.2 10^3/ul (1.0-4.8); ABS Monocytes 0.9 10^3/ul (0-0.8); ABS Neutrophils 7.2 10^3/ul (1.5-7.7); Eosinophil % 0.5 %; Hematocrit 40 % (35-47); Hemoglobin 13.6 g/dL (12.0-16.0); Lymphocyte % 12.5 %; Mean Corpuscular HGB Conc 34 g/dL (31-36); Mean Corpuscular Hemoglobin 30 pg (27-31); Mean Corpuscular Volume 89 fL (80-97); Platelet Count 148 10^3/uL (150-450); Red Cell Distribution Width 17 % (10-15); White Blood Count 9.4 10^3/uL (3.5-10.8)
[2022-06-24 06:51] LABS: INR 2.88 (0.89-1.11)
[2022-06-24 07:32] LABS: Calcium 10.7 mg/dL (8.6-10.3); Chloride 103 mmol/L (101-111); Potassium 4.1 mmol/L (3.5-5.0); Sodium 138 mmol/L (135-145)
[2022-06-24 07:37] LABS: Blood Urea Nitrogen 18 mg/dL (6-24); Glucose 86 mg/dL (70-100)
[2022-06-24] MEDS: Mometasone/Formoter 100/5 MDI INH SCH ×2 (08:11→19:01)
[2022-06-24] MEDS ORDERED: Phytonadione Oral Solution 5 MG/25 ML UDC PO ONE (08:17)
[2022-06-24] MEDS ORDERED: Phytonadione SUBCUT/IM Adult 10 MG/ML AMP (IM or SQ not preferred route) SUBCUT ONE (08:41)
[2022-06-24 10:00] LABS: TSH Ultra Thyroid Stim Horm 1.57 mcIU/mL (0.34-5.60)
[2022-06-24 10:14] LABS: Vitamin D Total 25(OH) 90.7 ng/mL (20-50)
[2022-06-24 10:20] LABS: Magnesium 1.7 mg/dL (1.9-2.7)
[2022-06-24 10:22] LABS: Anion Gap 21 mmol/L (2-11); CO2 Carbon Dioxide 14 mmol/L (22-32)
[2022-06-24 10:24] LABS: eGFR CKD-EPI 67.1 (>60)
[2022-06-24] MEDS: Acetaminophen IV 1 GM/100ML 1,000 MG/100 ML BAG IV SCH ×2 (11:25→16:11)
[2022-06-24] MEDS: Lidocaine PATCH 5% PATCH TRANSDERM SCH (11:26)
[2022-06-24] MEDS: Isosorbide Mononit ER 30mg TAB PO SCH (11:26)
[2022-06-24] MEDS: Amoxicillin/Clavul 875/125 TAB (Augmentin 875 tab) PO SCH ×2 (11:26→21:00)
[2022-06-24] MEDS: Cholecalciferol (VIT D3) 1,000 unit TAB PO SCH (11:32)
[2022-06-24 13:19] LABS: Calcium 10.6 mg/dL (8.6-10.3); Potassium 3.9 mmol/L (3.5-5.0)
[2022-06-24] MEDS ORDERED: D5W 1000 ml BAG 850 ML with Sodium Bicarb 8.4% Vial 50 ML 150 MEQ IV SCH (14:00)
[2022-06-24 15:04] LABS: Phosphorus 3.6 mg/dL (2.5-5.0)
[2022-06-24] MEDS: Sodium Bicarb 8.4% Vial 50 ML 150 MEQ in D5W 1000 ml BAG 850 ML IV SCH (17:10)
[2022-06-24 17:18] LABS: Calcium (PTH Intact) 10.7 mg/dL (8.6-10.3)
[2022-06-25] MEDS: Acetaminophen IV 1 GM/100ML 1,000 MG/100 ML BAG IV SCH ×3 (00:34→17:15)
[2022-06-25 05:52] LABS: ABS Eosinophils 0.1 10^3/ul (0-0.6); ABS Monocytes 0.6 10^3/ul (0-0.8); ABS Neutrophils 3.4 10^3/ul (1.5-7.7); Eosinophil % 1.2 %; Hematocrit 37 % (35-47); Hemoglobin 12.4 g/dL (12.0-16.0); Lymphocyte % 20.1 %; Mean Corpuscular HGB Conc 34 g/dL (31-36); Mean Corpuscular Hemoglobin 30 pg (27-31); Mean Corpuscular Volume 89 fL (80-97); Mean Platelet Volume 9.2 fL (7.4-10.4); Platelet Count 117 10^3/uL (150-450); Red Blood Count 4.15 10^6 /uL (3.70-4.87); Red Cell Distribution Width 17 % (10-15); White Blood Count 5.2 10^3/uL (3.5-10.8)
[2022-06-25 06:19] LABS: Calcium 10.1 mg/dL (8.6-10.3); Magnesium 1.7 mg/dL (1.9-2.7); Potassium 3.5 mmol/L (3.5-5.0); eGFR CKD-EPI 75.5 (>60)
[2022-06-25] MEDS: Mometasone/Formoter 100/5 MDI INH SCH ×2 (07:16→19:04)
[2022-06-25] MEDS ORDERED: Magnesium Sulfate 2 gm BAG 2 GM/50 ML BAG IVPB ONE (07:19)
[2022-06-25] MEDS ORDERED: Lactated Ringers 1000 ml BAG 1,000 ML IV ONE (07:39)
[2022-06-25] MEDS: Sodium Bicarb 8.4% Vial 50 ML 150 MEQ in D5W 1000 ml BAG 850 ML IV SCH (07:49)
[2022-06-25] MEDS: Isosorbide Mononit ER 30mg TAB PO SCH (08:10)
[2022-06-25] MEDS: Amoxicillin/Clavul 875/125 TAB (Augmentin 875 tab) PO SCH ×2 (08:15→20:50)
[2022-06-25] MEDS: Lidocaine PATCH 5% PATCH TRANSDERM SCH ×2 (08:17→17:15)
[2022-06-25 08:22] LABS: INR 1.27 (0.89-1.11)
[2022-06-25] MEDS: Dextran 70/Hypromellose Tears Eye Drops 15 ml BTL (for Artificials Tears) BOTH EYES PRN (18:24)
[2022-06-26] MEDS: Acetaminophen IV 1 GM/100ML 1,000 MG/100 ML BAG IV SCH ×2 (02:35→09:13)
[2022-06-26 07:10] LABS: ABS Eosinophils 0.1 10^3/ul (0-0.6); ABS Lymphocytes 1.1 10^3/ul (1.0-4.8); ABS Monocytes 0.5 10^3/ul (0-0.8); ABS Neutrophils 2.9 10^3/ul (1.5-7.7); Eosinophil % 2.5 %; Hematocrit 32 % (35-47); Hemoglobin 10.9 g/dL (12.0-16.0); Lymphocyte % 23.8 %; Mean Corpuscular HGB Conc 34 g/dL (31-36); Mean Corpuscular Hemoglobin 30 pg (27-31); Mean Corpuscular Volume 89 fL (80-97); Mean Platelet Volume 8.9 fL (7.4-10.4); Platelet Count 99 10^3/uL (150-450); Red Blood Count 3.62 10^6 /uL (3.70-4.87); Red Cell Distribution Width 16 % (10-15); White Blood Count 4.6 10^3/uL (3.5-10.8)
[2022-06-26] MEDS: Mometasone/Formoter 100/5 MDI INH SCH (07:25)
[2022-06-26 07:27] LABS: Albumin 3.2 g/dL (3.2-5.2); Albumin/Globulin Ratio 2.3 (1-3); Calcium 9.4 mg/dL (8.6-10.3); Globulin 1.4 g/dL (2-4); Magnesium 1.7 mg/dL (1.9-2.7); Potassium 3.4 mmol/L (3.5-5.0); Total Bilirubin 0.7 mg/dL (0.2-1.0); Total Protein 4.6 g/dL (6.4-8.9); eGFR CKD-EPI 86.2 (>60)
[2022-06-26] MEDS ORDERED: Potassium Chloride LIQUID 20 MEQ/15 ML LIQUID PO ONE (08:17)
[2022-06-26] MEDS: Lidocaine PATCH 5% PATCH TRANSDERM SCH (09:13)
[2022-06-26] MEDS: Amoxicillin/Clavul 875/125 TAB (Augmentin 875 tab) PO SCH (09:13)
[2022-06-26] MEDS: Isosorbide Mononit ER 30mg TAB PO SCH (09:15)
[2022-06-26 10:47] VITALS: BP 99/61
== END 2022-06-26 12:12 | DRG 552 ==
LOC: ED 14:31 → SUATTDRO 06-02 07:30 → EDHOLD 06-02 07:30 → SSU 06-02 11:14 → MED 06-03 23:42
PROVIDERS: ADMIT Internal Medicine; ATTEND Internal Medicine